=== PATIENT | male | born 1950 | race Caucasian/White ===

== ENCOUNTER 2018-03-29 12:36 | Emergency (ER) | payer MEDICARE ==
[2018-03-29 12:56] VITALS: RESP 16
[2018-03-29] MEDS ORDERED: KETOROLAC 30 MG/ML 1 ML VIAL IVP STA (14:35)
[2018-03-29] MEDS ORDERED: SODIUM CHLORIDE 0.9% 1,000 ML IV STA (14:35)
[2018-03-29] MEDS ORDERED: ONDANSETRON 4 MG/2 ML VIAL IVP STA (14:35)
[2018-03-29 14:38] LABS: Appearance,Urine Clear (Clear); Bilirubin,Urine Negative (Negative); Blood,Urine Negative (Negative); Color,Urine Light Yellow; Glucose,Urine (UA) Negative (Negative); Ketones,Urine Negative (Negative); Leukocyte Esterase,Urine Negative (Negative); Nitrite,Urine Negative (Negative); PH, Urine 6.5 (5.0-8.0); Protein,Urine Negative (Negative); Specific Gravity,Urine 1.006 (1.001-1.035); Urobilinogen,Urine <2.0 mg/dL (<2.0)
--- NOTE | 2018-03-29 14:52 | ED ---
Back Pain HPI - General Chief Complaint: Back Pain/Injury Stated Complaint: POSS KIDNEY STONE Time Seen by Provider: 03/29/18 14:06 Source: patient, RN notes reviewed, old records reviewed Limitations: no limitations - History of Present Illness Initial Comments: 68-year-old male presents for his rosacea plan of left-sided flank pain for the past 2 days. Concern for possibility of a kidney stone. Pain feels similar to his left kidney stones. He denies any fever or chills. His regular urinary frequency. He states that he's had no nausea or vomiting. Pain stays within the back. He reports he does have history of chronic back issues however the pain seems deeper and not muscle skeletal related. - Related Data Home Medications Medication Instructions Recorded Confirmed L.acidoph,Paracasei, B.lactis 1 cap PO DAILY 03/14/16 03/29/18 [Probiotic] Magnesium 200 mg PO DAILY 03/14/16 03/29/18 Multivitamins, Thera [Multivitamin] 1 tab PO DAILY 03/14/16 03/29/18 [place]-3 Fatty Acids/Fish Oil [Fish 1 cap PO DAILY 03/14/16 03/29/18 Oil 1,000 mg Softgel] Beta Glucan 1 tab PO DAILY 03/29/18 03/29/18 Cyanocobalamin (Vitamin B-12) 1,000 mcg PO DAILY 03/29/18 03/29/18 [Vitamin B-12] Previous Rx's Medication Instructions Recorded Cyclobenzaprine [Flexeril] 10 mg PO TID #12 tab 03/29/18 Ibuprofen 800 mg PO TID #20 tablet 03/29/18 Allergies Allergy/AdvReac Type Severity Reaction Status Date / Time No Known Allergies Allergy Verified 03/29/18 13:51 Review of Systems ROS Statement: Those systems with pertinent positive or pertinent negative responses have been documented in the HPI. ROS Other: All systems not noted in ROS Statement are negative. Past Medical History Past Medical History: No Reported History Additional Past Medical History / Comment(s): KIDNEY STONE, chronic low back pain. History of Any Multi-Drug Resistant Organisms: None Reported Past Surgical History: Cholecystectomy, Tonsillectomy Additional Past Surgical History / Comment(s): vasectomy Past Psychological History: No Psychological Hx Reported Smoking Status: Never smoker Past Alcohol Use History: None Reported Past Drug Use History: None Reported General Exam - General Exam Comments Initial Comments: This is a well appearing 68 year old male, no distress. Limitations: no limitations General appearance: alert, in no apparent distress Head exam: Present: atraumatic, normocephalic, normal inspection Eye exam: Present: normal appearance, PERRL, EOMI. Absent: scleral icterus, conjunctival injection, periorbital swelling ENT exam: Present: normal exam, mucous membranes moist Neck exam: Present: normal inspection. Absent: tenderness, meningismus, lymphadenopathy Respiratory exam: Present: normal lung sounds bilaterally. Absent: respiratory distress, wheezes, rales, rhonchi, stridor Cardiovascular Exam: Present: regular rate, normal rhythm, normal heart sounds. Absent: systolic murmur, diastolic murmur, rubs, gallop, clicks GI/Abdominal exam: Present: soft, normal bowel sounds, other (Left flank and CVA tenderness ). Absent: distended, tenderness, guarding, rebound, rigid Extremities exam: Present: normal inspection, full ROM, normal capillary refill. Absent: tenderness, pedal edema, joint swelling, calf tenderness Back exam: Present: normal inspection Neurological exam: Present: alert, oriented X3, CN II-XII intact Psychiatric exam: Present: normal affect, normal mood Course Vital Signs 03/29/18 03/29/18 12:52 16:10 Temperature 97.9 F 97.8 F Pulse Rate 68 58 L Respiratory 16 16 Rate Blood Pressure 116/70 147/86 O2 Sat by Pulse 97 98 Oximetry Medical Decision Making - Medical Decision Making 68-year-old male presents for his rosacea plan of left-sided flank pain for the past 2 days. Concern for possibility of a kidney stone. Pain feels similar to his left kidney stones. Labs today are unremarkable. UA shows no hematuria. Given patient pain and tenderness CT scan without contrast completed. CT is negative for renal stones. Discussed musculuar skeletal etiology. Patient will have DC with ibuprofen and flexeril. Discussed PCP follow up. - Lab Data Result diagrams: 03/29/18 14:55 03/29/18 14:55 Lab Results 03/29/18 03/29/18 03/29/18 Range/Units 14:05 14:55 14:55 WBC 3.7 L (3.8-10.6) k/uL RBC 4.73 (4.30-5.90) m/uL Hgb 14.9 (13.0-17.5) gm/dL Hct 45.8 (39.0-53.0) % MCV 96.9 (80.0-100.0) fL MCH 31.4 (25.0-35.0) pg MCHC 32.4 (31.0-37.0) g/dL RDW 13.6 (11.5-15.5) % Plt Count 294 (150-450) k/uL Neutrophils % 60 % Lymphocytes % 24 % Monocytes % 9 % Eosinophils % 4 % Basophils % 1 % Neutrophils # 2.2 (1.3-7.7) k/uL Lymphocytes # 0.9 L (1.0-4.8) k/uL Monocytes # 0.3 (0-1.0) k/uL Eosinophils # 0.1 (0-0.7) k/uL Basophils # 0.0 (0-0.2) k/uL PT (9.0-12.0) sec INR (<1.2) APTT (22.0-30.0) sec Sodium 139 (137-145) mmol/L Potassium 4.7 (3.5-5.1) mmol/L Chloride 104 (98-107) mmol/L Carbon Dioxide 27 (22-30) mmol/L Anion Gap 8 mmol/L BUN 14 (9-20) mg/dL Creatinine 0.88 (0.66-1.25) mg/dL Est GFR (CKD-EPI)AfAm >90 (>60 ml/min/1.73 sqM) Est GFR (CKD-EPI)NonAf 89 (>60 ml/min/1.73 sqM) Glucose 95 (74-99) mg/dL Calcium 10.3 H (8.4-10.2) mg/dL Total Bilirubin 0.4 (0.2-1.3) mg/dL AST 26 (17-59) U/L ALT 31 (21-72) U/L Alkaline Phosphatase 59 (38-126) U/L Total Protein 7.5 (6.3-8.2) g/dL Albumin 4.3 (3.5-5.0) g/dL Amylase 71 (30-110) U/L Lipase 70 (23-300) U/L Urine Color Light Yellow Urine Appearance Clear (Clear) Urine pH 6.5 (5.0-8.0) Ur Specific [place] 1.006 (1.001-1.035) Urine Protein Negative (Negative) Urine Glucose (UA) Negative (Negative) Urine Ketones Negative (Negative) Urine Blood Negative (Negative) Urine Nitrite Negative (Negative) Urine Bilirubin Negative (Negative) Urine Urobilinogen <2.0 (<2.0) mg/dL Ur Leukocyte Esterase Negative (Negative) 03/29/18 Range/Units 14:55 WBC (3.8-10.6) k/uL RBC (4.30-5.90) m/uL Hgb (13.0-17.5) gm/dL Hct (39.0-53.0) % MCV (80.0-100.0) fL MCH (25.0-35.0) pg MCHC (31.0-37.0) g/dL RDW (11.5-15.5) % Plt Count (150-450) k/uL Neutrophils % % Lymphocytes % % Monocytes % % Eosinophils % % Basophils % % Neutrophils # (1.3-7.7) k/uL Lymphocytes # (1.0-4.8) k/uL Monocytes # (0-1.0) k/uL Eosinophils # (0-0.7) k/uL Basophils # (0-0.2) k/uL PT 10.0 (9.0-12.0) sec INR 1.0 (<1.2) APTT 23.3 (22.0-30.0) sec Sodium (137-145) mmol/L Potassium (3.5-5.1) mmol/L Chloride (98-107) mmol/L Carbon Dioxide (22-30) mmol/L Anion Gap mmol/L BUN (9-20) mg/dL Creatinine (0.66-1.25) mg/dL Est GFR (CKD-EPI)AfAm (>60 ml/min/1.73 sqM) Est GFR (CKD-EPI)NonAf (>60 ml/min/1.73 sqM) Glucose (74-99) mg/dL Calcium (8.4-10.2) mg/dL Total Bilirubin (0.2-1.3) mg/dL AST (17-59) U/L ALT (21-72) U/L Alkaline Phosphatase (38-126) U/L Total Protein (6.3-8.2) g/dL Albumin (3.5-5.0) g/dL Amylase (30-110) U/L Lipase (23-300) U/L Urine Color Urine Appearance (Clear) Urine pH (5.0-8.0) Ur Specific [place] (1.001-1.035) Urine Protein (Negative) Urine Glucose (UA) (Negative) Urine Ketones (Negative) Urine Blood (Negative) Urine Nitrite (Negative) Urine Bilirubin (Negative) Urine Urobilinogen (<2.0) mg/dL Ur Leukocyte Esterase (Negative) - Radiology Data Radiology results: report reviewed CT is negative for acute disease. No renal stones. Small calcification over prostate noted. Post surgical changes noted. Disposition Clinical Impression: Flank pain Disposition: HOME SELF-CARE Condition: Good Instructions: Acute Low Back Pain (ED) Additional Instructions: Patient has follow-up with primary care physician. Return to emergency department if any alarming signs or symptoms occur. Prescriptions: Cyclobenzaprine [Flexeril] 10 mg PO TID #12 tab Ibuprofen 800 mg PO TID #20 tablet Is patient prescribed a controlled substance at d/c from ED?: No Referrals: Jose Godinez DO [Primary Care Provider] - 1-2 days Time of Disposition: 15:54
[2018-03-29 15:16] LABS: Basophils % (A) 1 %; Eosinophils # (A) 0.1 k/uL (0-0.7); Eosinophils % (A) 4 %; HCT 45.8 % (39.0-53.0); HGB 14.9 gm/dL (13.0-17.5); Lymphocytes # (A) 0.9 k/uL (1.0-4.8); Lymphocytes % (A) 24 %; MCH 31.4 pg (25.0-35.0); MCHC 32.4 g/dL (31.0-37.0); MCV 96.9 fL (80.0-100.0); Mean Platelet Volume 6.7; Monocytes # (A) 0.3 k/uL (0-1.0); Monocytes % (A) 9 %; Neutrophils # (A) 2.2 k/uL (1.3-7.7); Neutrophils % (A) 60 %; Platelet Count 294 k/uL (150-450); RBC 4.73 m/uL (4.30-5.90); RDW 13.6 % (11.5-15.5); WBC 3.7 k/uL (3.8-10.6)
[2018-03-29 15:22] LABS: ALT 31 U/L (21-72); AST 26 U/L (17-59); Albumin 4.3 g/dL (3.5-5.0); Alkaline Phosphatase 59 U/L (38-126); Amylase 71 U/L (30-110); Anion Gap 8 mmol/L; Blood Urea Nitrogen 14 mg/dL (9-20); Calcium 10.3 mg/dL (8.4-10.2); Carbon Dioxide 27 mmol/L (22-30); Chloride 104 mmol/L (98-107); Glucose 95 mg/dL (74-99); Lipase 70 U/L (23-300); Partial Thromboplastin Time 23.3 sec (22.0-30.0); Potassium 4.7 mmol/L (3.5-5.1); Sodium 139 mmol/L (137-145); Total Bilirubin 0.4 mg/dL (0.2-1.3); Total Protein 7.5 g/dL (6.3-8.2)
--- NOTE | 2018-03-29 15:34 | CT ---
EXAMINATION TYPE: CT abdomen pelvis wo con DATE OF EXAM: 03/29/2018 COMPARISON: Prior CT abdomen pelvis 03/14/2016 HISTORY: Abdominal pain, left flank pain CT DLP: 973 mGycm Automated exposure control for dose reduction was used. TECHNIQUE: Helical acquisition of images from the lung bases through the pelvis. FINDINGS: Lack of intravenous contrast may compromise sensitivity. Small hiatal hernia present. LUNG BASES: No significant abnormality is appreciated. AORTA: No significant abnormality is appreciated. LIVER/GB: Surgical clips are present in the right upper quadrant status post cholecystectomy. The christiana er shows subcentimeter cyst towards the dome as on prior exam.. PANCREAS: No significant abnormality is seen. SPLEEN: No significant abnormality is seen. ADRENALS: No significant abnormality is seen. KIDNEYS: No significant abnormality is seen. REPRODUCTIVE ORGANS: Prostate is enlarged. There is an inferior impression on the urinary bladder. T here is some calcification within the prostate.. URINARY BLADDER: No significant abnormality is seen. BOWEL: Extensive diverticular changes associated with the sigmoid colon. No evident appendicitis. Du odenal diverticulum present at the head of the pancreas as on prior. FREE AIR: No Free Air is visible. ASCITES: None visible. PELVIC ADENOPATHY: None visualized. RETROPERITONEAL ADENOPATHY: No Retroperitoneal Adenopathy visible. OSSEOUS STRUCTURES: No significant interval change is seen. Degenerative disc changes, facet arthrop athy noted, there is a spinal curvature as on prior. IMPRESSION: NONCONTRAST EXAM. NO SIGNIFICANT INTERVAL CHANGE, ADDITIONAL FINDINGS ABOVE. DIVERTICULOSIS.
[2018-03-29 16:11] VITALS: BP 147/86; PULSE 58; TEMP 97.8
== END 2018-03-29 16:10 | disposition home or self-care (01) ==
LOC: EC 12:36
DX: R10.9 Unspecified abdominal pain (principal); M54.9 Dorsalgia, unspecified; Z87.442 Personal history of urinary calculi; Z79.899 Other long term (current) drug therapy; Z90.49 Acquired absence of other specified parts of digestive tract
CPT/HCPCS: 36415; 80053; 82150; 83690; 85025; 85610; 85730; 81003; 74176; 99284; 96374; 96375; 96361; J2405; J1885

== ENCOUNTER → 2018-09-25 | Outpatient (CLI) | payer MEDICARE ==
[2018-09-25 11:58] LABS: Appearance,Urine Clear (Clear); Bilirubin,Urine Negative (Negative); Blood,Urine Negative (Negative); Color,Urine Yellow; Glucose,Urine (UA) Negative (Negative); Ketones,Urine Negative (Negative); Leukocyte Esterase,Urine Negative (Negative); Nitrite,Urine Negative (Negative); Protein,Urine Negative (Negative); Specific Gravity,Urine 1.019 (1.001-1.035); Urobilinogen,Urine <2.0 mg/dL (<2.0)
[2018-09-25 12:46] LABS: HGB 15.5 gm/dL (13.0-17.5); MCH 33.2 pg (25.0-35.0); MCHC 32.9 g/dL (31.0-37.0); Macrocytosis Slight; Mean Platelet Volume 6.2; Platelet Count 302 k/uL (150-450); RBC 4.66 m/uL (4.30-5.90); RDW 14.1 % (11.5-15.5); WBC 3.5 k/uL (3.8-10.6)
[2018-09-25 18:52] LABS: Albumin 4.5 g/dL (3.80-4.90); Albumin/Globulin Ratio 1.73 (1.60-3.17); Anion Gap 9.4 mmol/L (4.00-12.00); Carbon Dioxide 26.6 mmol/L (21.6-31.8); Globulin 2.6 g/dL (1.6-3.3); Potassium 4.6 mmol/L (3.5-5.5); Total Bilirubin 0.5 mg/dL (0.2-1.2); Total Protein 7.1 g/dL (6.2-8.2)
[2018-09-25 18:55] LABS: Vitamin D 25 Hydroxy 10.8 ng/mL (30.0-100.0)
[2018-09-25 19:27] LABS: T4, Free (Free Thyroxine) 1.1 ng/dL (0.80-1.80)
[2018-09-25 20:15] LABS: Hepatitis A Antibody IgM Non-Reactive (Non-Reactive); Hepatitis B Core IgM Non-Reactive (Non-Reactive)
== END | disposition home or self-care (01) ==
LOC: LABWHC1 10:52
PROVIDERS: ATTEND Family Medicine
DX: Z00.00 Encounter for general adult medical examination without abnormal findings (principal); E78.5 Hyperlipidemia, unspecified; E55.9 Vitamin D deficiency, unspecified; R94.5 Abnormal results of liver function studies; Z12.5 Encounter for screening for malignant neoplasm of prostate
CPT/HCPCS: 36415; 80053; 80061; 80074; 81003; 82306; 84153; 84439; 84443; 85027

== ENCOUNTER → 2018-10-10 | Outpatient (CLI) | payer MEDICARE ==
--- NOTE | 2018-10-10 16:23 | XR ---
Left foot HISTORY: Superficial foreign body, pain and history of glass removal third metatarsal head 3 views of the left foot No comparisons Bone mineralization, joint spaces and alignment are maintained. No radiopaque foreign body noted at t he third digit. Metallic density seen at the dorsal aspect of the middle phalanx of the second digit of the left foot is indeterminate. There are likely skin calcifications or foreign bodies noted at th e level of the lateral malleolus. There is a plantar calcaneus spur. IMPRESSION: Soft tissue metallic densities may represent calcifications. No radiopaque foreign body n oted at the third digit however.
== END | disposition home or self-care (01) ==
LOC: RADXRMAIN 14:51
PROVIDERS: ATTEND Podiatrist Foot Surgery
DX: M79.672 Pain in left foot (principal); S90.852S Superficial foreign body, left foot, sequela

== ENCOUNTER 2024-01-03 09:02 | Emergency (ER) | payer MEDICARE ==
--- NOTE | 2024-01-03 09:36 | ED ---
Extremity Problem HPI - General Chief complaint: Extremity Problem,Nontraumatic Stated complaint: left ft swollen Time Seen by Provider: 01/03/24 09:14 Source: patient, RN notes reviewed Mode of arrival: ambulatory Limitations: no limitations - History of Present Illness Initial comments: 73-year-old male presents emergency department with chief complaint of left ankle, foot swelling discomfort. He states started on the lateral portion of his ankle states there is redness, swelling and a sore. He called his PCP advised to come to emergency department. Patient denies any fevers no trauma denies being diabetic denies any calf pain, calf swelling, thigh pain or leg swelling otherwise. - Related Data Home Medications Medication Instructions Recorded Confirmed L.acidoph,Paracasei, B.lactis 1 cap PO DAILY 03/14/16 01/03/24 [Probiotic] Magnesium 200 mg PO DAILY 03/14/16 01/03/24 Beta Glucan 1 tab PO DAILY 03/29/18 01/03/24 Cyanocobalamin (Vitamin B-12) 1,000 mcg PO DAILY 03/29/18 01/03/24 [Vitamin B-12] Ascorbic Acid [Vitamin C] 1,000 mg PO DAILY 01/03/24 01/03/24 Ergocalciferol (Vitamin D2) 1,250 mcg PO Q7D 01/03/24 01/03/24 [Drisdol (50,000 Iu)] Zinc Gluconate [Zinc] 50 mg PO DAILY 01/03/24 01/03/24 Previous Rx's Medication Instructions Recorded Cephalexin [Keflex] 500 mg PO Q6HR #40 cap 01/03/24 Allergies Allergy/AdvReac Type Severity Reaction Status Date / Time No Known Allergies Allergy Verified 01/03/24 11:00 Review of Systems ROS Statement: Those systems with pertinent positive or pertinent negative responses have been documented in the HPI. ROS Other: All systems not noted in ROS Statement are negative. Past Medical History Past Medical History: No Reported History Additional Past Medical History / Comment(s): KIDNEY STONE, chronic low back pain. History of Any Multi-Drug Resistant Organisms: None Reported Past Surgical History: Cholecystectomy, Tonsillectomy Additional Past Surgical History / Comment(s): vasectomy Past Psychological History: No Psychological Hx Reported Smoking Status: Never smoker Past Alcohol Use History: None Reported Past Drug Use History: None Reported General Exam Limitations: no limitations General appearance: alert, in no apparent distress Head exam: Present: atraumatic, normocephalic, normal inspection Respiratory exam: Present: normal lung sounds bilaterally. Absent: respiratory distress, wheezes, rales, rhonchi, stridor Cardiovascular Exam: Present: regular rate, normal rhythm, normal heart sounds. Absent: systolic murmur, diastolic murmur, rubs, gallop, clicks Extremities exam: Present: other (Left ankle lateral malleolus there is erythema, there is callus sore noted there is mild swelling neurovascular intact there is no calf tenderness swelling or redness) Neurological exam: Present: alert Course Vital Signs 01/03/24 01/03/24 09:09 12:17 Temperature 98.8 F Pulse Rate 72 59 L Respiratory 18 16 Rate Blood Pressure 128/78 143/88 O2 Sat by Pulse 98 100 Oximetry Medical Decision Making - Medical Decision Making Was pt. sent in by a medical professional or institution (, PA, HEALTHCARE SALES REPRESENTATIVE, urgent care, hospital, or jail...) When possible be specific @ -No Did you speak to anyone other than the patient for history (EMS, parent, family, police, friend...)? What history was obtained from this source @ -No Did you review nursing and triage notes (agree or disagree)? Why? @ -I reviewed and agree with nursing and triage notes Were old charts reviewed (outside hosp., previous admission, EMS record, old EKG, old radiological studies, urgent care reports/EKG's, jail records)? Report findings @ -No old charts were reviewed Differential Diagnosis (chest pain, altered mental status, abdominal pain women, abdominal pain men, vaginal bleeding, weakness, fever, dyspnea, syncope, headache, dizziness, GI bleed, back pain, seizure, CVA, palpatations, mental health, musculoskeletal)? @ -Cellulitis, osteomyelitis EKG interpreted by me (3pts min.). @ -None X-rays interpreted by me (1pt min.). @ -X-ray shows no acute process foot, ankle CT interpreted by me (1pt min.). @ -None done U/S interpreted by me (1pt. min.). @ -None done What testing was considered but not performed or refused? (CT, X-rays, U/S, labs)? Why? @ -None What meds were considered but not given or refused? Why? @ -None Did you discuss the management of the patient with other professionals (professionals i.e. , PA, HEALTHCARE SALES REPRESENTATIVE, lab, RT, psych nurse, social work specialist, industrial roofer helper, teacher, sustainability officer, case resolution specialist)? Give summary @ -No Was smoking cessation discussed for >3mins.? @ -No Was critical care preformed (if so, how long)? @ -No Were there social determinants of health that impacted care today? How? (Homelessness, low income, unemployed, alcoholism, drug addiction, transportation, low edu. Level, literacy, decrease access to med. care, group home, rehab)? @ -No Was there de-escalation of care discussed even if they declined (Discuss DNR or withdrawal of care, Hospice)? DNR status @ -No What co-morbidities impacted this encounter? (DM, HTN, Smoking, COPD, CAD, Cancer, CVA, ARF, Chemo, Hep., AIDS, mental health diagnosis, sleep apnea, morbid obesity)? @ -None Was patient admitted / discharged? Hospital course, mention meds given and route, prescriptions, significant lab abnormalities, going to OR and other pertinent info. @ -Discharge patient has evidence of cellulitis was discharged on oral antibiotics return parens were discussed close follow-up discussed Undiagnosed new problem with uncertain prognosis? @ -No Drug Therapy requiring intensive monitoring for toxicity (Heparin, Nitro, Insulin, Cardizem)? @ -No Were any procedures done? @ -No Diagnosis/symptom? @ -Cellulitis Acute, or Chronic, or Acute on Chronic? @ -Acute Uncomplicated (without systemic symptoms) or Complicated (systemic symptoms)? @ -Uncomplicated Side effects of treatment? @ -No Exacerbation, Progression, or Severe Exacerbation? @ -No Poses a threat to life or bodily function? How? (Chest pain, [place], [place], pneumonia, PE, COPD, DKA, ARF, appy, cholecystitis, CVA, Diverticulitis, Homicidal, Suicidal, threat to staff... and all critical care pts) @ -No - Lab Data Result diagrams: 01/03/24 09:44 01/03/24 09:44 Lab Results 01/03/24 01/03/24 Range/Units 09:44 09:44 WBC 3.8 (3.8-10.6) k/uL RBC 4.04 L (4.30-5.90) m/uL Hgb 13.2 (13.0-17.5) gm/dL Hct 40.4 (39.0-53.0) % MCV 99.9 (80.0-100.0) fL MCH 32.6 (25.0-35.0) pg MCHC 32.6 (31.0-37.0) g/dL RDW 13.6 (11.5-15.5) % Plt Count 250 (150-450) k/uL MPV 7.5 Neutrophils % 56 % Lymphocytes % 24 % Monocytes % 8 % Eosinophils % 7 % Basophils % 1 % Neutrophils # 2.1 (1.3-7.7) k/uL Lymphocytes # 0.9 L (1.0-4.8) k/uL Monocytes # 0.3 (0-1.0) k/uL Eosinophils # 0.3 (0-0.7) k/uL Basophils # 0.0 (0-0.2) k/uL Sodium 141 (137-145) mmol/L Potassium 4.1 (3.5-5.1) mmol/L Chloride 110 H (98-107) mmol/L Carbon Dioxide 27 (22-30) mmol/L Anion Gap 4 mmol/L BUN 14 (9-20) mg/dL Creatinine 0.88 (0.66-1.25) mg/dL Est GFR (CKD-EPI)AfAm >90 (>60 ml/min/1.73 sqM) Est GFR (CKD-EPI)NonAf 85 (>60 ml/min/1.73 sqM) Glucose 90 (74-99) mg/dL Uric Acid 4.8 (3.5-8.5) mg/dL Calcium 9.3 (8.4-10.2) mg/dL Total Bilirubin 0.6 (0.2-1.3) mg/dL AST 27 (17-59) U/L ALT 17 (4-49) U/L Alkaline Phosphatase 64 (38-126) U/L C-Reactive Protein 1.9 H (<1.0) mg/dL Total Protein 6.4 (6.3-8.2) g/dL Albumin 3.7 (3.5-5.0) g/dL Disposition Clinical Impression: Cellulitis of left ankle Disposition: HOME SELF-CARE Condition: Stable Instructions (If sedation given, give patient instructions): Cellulitis (ED) Additional Instructions: Please return to the Emergency Department if symptoms worsen or any other concerns. Prescriptions: Cephalexin [Keflex] 500 mg PO Q6HR #40 cap Is patient prescribed a controlled substance at d/c from ED?: No Referrals: Jose Godinez DO [Primary Care Provider] - 1-2 days Time of Disposition: 11:59
[2024-01-03 09:51] VITALS: TEMP 98.8
--- NOTE | 2024-01-03 09:55 | XR ---
EXAMINATION TYPE: XR ankle complete LT DATE OF EXAM: 01/03/2024 COMPARISON: X-ray foot 10/10/2018 HISTORY: Pain FINDINGS: Three views of the ankle demonstrate the ankle mortise to be intact and symmetric. The joint spaces are preserved. The osseous structures are intact. Soft tissue edema laterally with areas of punctat e calcification. Recommend further evaluation with MRI to assess whether this is inflammatory, infect ious or neoplastic. Small calcaneal spur. IMPRESSION: 1. No definite acute fracture or dislocation. There is a area of localized soft tissue prominence or swelling along the lateral margin of the ankle with internal calcifications. Finding could be postinflammatory or postinfectious. Abnormal densitie s were seen on the prior exam. Could represent chronic foreign body correlate clinically. Consider fo llow-up ultrasound or CT scan..
[2024-01-03 10:00] LABS: Basophils % (A) 1 %; Eosinophils # (A) 0.3 k/uL (0-0.7); Eosinophils % (A) 7 %; HCT 40.4 % (39.0-53.0); HGB 13.2 gm/dL (13.0-17.5); Lymphocytes # (A) 0.9 k/uL (1.0-4.8); Lymphocytes % (A) 24 %; MCH 32.6 pg (25.0-35.0); MCHC 32.6 g/dL (31.0-37.0); MCV 99.9 fL (80.0-100.0); Mean Platelet Volume 7.5; Monocytes # (A) 0.3 k/uL (0-1.0); Monocytes % (A) 8 %; Neutrophils # (A) 2.1 k/uL (1.3-7.7); Neutrophils % (A) 56 %; Platelet Count 250 k/uL (150-450); RBC 4.04 m/uL (4.30-5.90); RDW 13.6 % (11.5-15.5); WBC 3.8 k/uL (3.8-10.6)
[2024-01-03 10:13] LABS: ALT 17 U/L (4-49); AST 27 U/L (17-59); African American GFR (CKD) >90 (>60 ml/min/1.73 sqM); Albumin 3.7 g/dL (3.5-5.0); Alkaline Phosphatase 64 U/L (38-126); Anion Gap 4 mmol/L; Blood Urea Nitrogen 14 mg/dL (9-20); Calcium 9.3 mg/dL (8.4-10.2); Carbon Dioxide 27 mmol/L (22-30); Chloride 110 mmol/L (98-107); Glucose 90 mg/dL (74-99); Non-African American GFR(CKD) 85 (>60 ml/min/1.73 sqM); Potassium 4.1 mmol/L (3.5-5.1); Sodium 141 mmol/L (137-145); Total Bilirubin 0.6 mg/dL (0.2-1.3); Total Protein 6.4 g/dL (6.3-8.2); Uric Acid 4.8 mg/dL (3.5-8.5)
[2024-01-03 12:38] VITALS: BP 143/88; PULSE 59; RESP 16
[2024-01-03 14:00] LABS: C Reactive Protein 1.9 mg/dL (<1.0)
== END 2024-01-03 12:18 | disposition home or self-care (01) ==
LOC: EC 09:02
DX: L03.116 Cellulitis of left lower limb (principal)
CPT/HCPCS: 36415; 80053; 84550; 85025; 86140; 99283

== ENCOUNTER 2024-01-11 03:24 | Observation (INO) | payer MEDICARE ==
[2024-01-11] MEDS: SODIUM CHLORIDE 0.9% 1,000 ML IV STA (03:48)
[2024-01-11 03:54] LABS: Basophils % (A) 0 %; Eosinophils # (A) 0.2 k/uL (0-0.7); Eosinophils % (A) 2 %; HCT 41.8 % (39.0-53.0); HGB 13.5 gm/dL (13.0-17.5); Lymphocytes % (A) 12 %; MCH 31.9 pg (25.0-35.0); MCHC 32.2 g/dL (31.0-37.0); MCV 99.1 fL (80.0-100.0); Mean Platelet Volume 7.2; Monocytes # (A) 0.7 k/uL (0-1.0); Monocytes % (A) 9 %; Neutrophils # (A) 6.1 k/uL (1.3-7.7); Neutrophils % (A) 74 %; Platelet Count 343 k/uL (150-450); RBC 4.22 m/uL (4.30-5.90); RDW 13.7 % (11.5-15.5); WBC 8.3 k/uL (3.8-10.6)
--- NOTE | 2024-01-11 04:04 | XR ---
EXAMINATION TYPE: XR chest 2V DATE OF EXAM: 01/11/2024 COMPARISON: NONE HISTORY: Syncope TECHNIQUE: Frontal and lateral views of the chest are obtained. FINDINGS: There is no focal air space opacity, pleural effusion, or pneumothorax seen. The cardiac silhouette size is within normal limits. The osseous structures are intact. IMPRESSION: No acute cardiopulmonary process.
--- NOTE | 2024-01-11 04:06 | ED ---
General Adult HPI - General Stated complaint: Syncope Time Seen by Provider: 01/11/24 03:27 - History of Present Illness Initial comments: A pleasant 73-year-old gentleman who was seen in our ER last week for what was believed to be cellulitis of the left ankle, patient took a course of Keflex. Despite taking his medication patient has had persistent pain redness and swelling. Patient states that tonight he was not able to sleep due to the pain he got up from bed to get some ibuprofen and use the restroom states that he took a couple steps got very lightheaded and then had a syncopal episode in which she lost continence of the bladder. Patient states that him falling to the ground alerted his who immediately started asking him what was going on patient was able to answer clearly did not seem to have any postictal period. Patient does not believe he hit his head he not have any head pain or any pain aside from the ankle that was present syncopal episode. No significant medical history he takes a vitamin D supplement and follows with Dr. Cagle orthopedics for pain in his right knee for which she has received injections. - Related Data Home Medications Medication Instructions Recorded Confirmed L.acidoph,Paracasei, B.lactis 1 cap PO DAILY 03/14/16 01/03/24 [Probiotic] Magnesium 200 mg PO DAILY 03/14/16 01/03/24 Beta Glucan 1 tab PO DAILY 03/29/18 01/03/24 Cyanocobalamin (Vitamin B-12) 1,000 mcg PO DAILY 03/29/18 01/03/24 [Vitamin B-12] Ascorbic Acid [Vitamin C] 1,000 mg PO DAILY 01/03/24 01/03/24 Ergocalciferol (Vitamin D2) 1,250 mcg PO Q7D 01/03/24 01/03/24 [Drisdol (50,000 Iu)] Zinc Gluconate [Zinc] 50 mg PO DAILY 01/03/24 01/03/24 Previous Rx's Medication Instructions Recorded Cephalexin [Keflex] 500 mg PO Q6HR #40 cap 01/03/24 Allergies Allergy/AdvReac Type Severity Reaction Status Date / Time No Known Allergies Allergy Verified 01/11/24 03:28 Review of Systems ROS Statement: Those systems with pertinent positive or pertinent negative responses have been documented in the HPI. ROS Other: All systems not noted in ROS Statement are negative. Past Medical History Past Medical History: No Reported History Additional Past Medical History / Comment(s): KIDNEY STONE, chronic low back pain. History of Any Multi-Drug Resistant Organisms: None Reported Past Surgical History: Cholecystectomy, Tonsillectomy Additional Past Surgical History / Comment(s): vasectomy Past Psychological History: No Psychological Hx Reported Smoking Status: Never smoker Past Alcohol Use History: None Reported Past Drug Use History: None Reported General Exam - General Exam Comments Initial Comments: Physical Exam GENERAL: Patient is well-developed and well-nourished. Patient is nontoxic and well- hydrated and is in no distress. HENT: Normocephalic, Atraumatic. EYES: PERRL, EOMI PULMONARY: Unlabored respirations. No audible rales rhonchi or wheezing was noted. CARDIOVASCULAR: There is a regular rate and rhythm without any murmurs gallops or rubs. ABDOMEN: Soft and nontender with normal bowel sounds. SKIN: Skin is clear with no lesions or rashes and otherwise unremarkable. : Deferred NEUROLOGIC: Patient is alert and oriented x3. Moving all extremities spontaneously MUSCULOSKELETAL: Normal extremities with adequate strength and full range of motion. No lower extremity swelling or edema. No calf tenderness. PSYCHIATRIC: Normal psychiatric evaluation. Course Vital Signs 01/11/24 03:28 Temperature 98.3 F Pulse Rate 84 Respiratory 19 Rate Blood Pressure 111/75 O2 Sat by Pulse 99 Oximetry EKG Findings - EKG Comments: EKG Findings:: EKG interpreted by me EKG obtained due to syncope, EKG obtained at 3:42 AM rate is 75 rhythm is sinus lateral Q waves are noted, VT 162 QRS 90 QTc 416 there are no acute ST elevations or depressions no evidence of ischemia infarction or pathologic arrhythmia. Medical Decision Making - Medical Decision Making Was pt. sent in by a medical professional or institution (, PA, JACKSCREW WORKER, urgent care, hospital, or fci...) When possible be specific @ -No Did you speak to anyone other than the patient for history (EMS, parent, family, police, friend...)? What history was obtained from this source @ -EMS Did you review nursing and triage notes (agree or disagree)? Why? @ -I reviewed and agree with nursing and triage notes Were old charts reviewed (outside hosp., previous admission, EMS record, old EKG, old radiological studies, urgent care reports/EKG's, fci records)? Report findings @ -Previous ER visit was reviewed Differential Diagnosis (chest pain, altered mental status, abdominal pain women, abdominal pain men, vaginal bleeding, weakness, fever, dyspnea, syncope, headache, dizziness, GI bleed, back pain, seizure, CVA, palpatations, mental health)? @ -Differential Syncope: Valvular disease, hypertrophic cardiomyopathy, pulmonary embolism, tamponade, tachycardia, bradycardia, PA, hypovolemia, hemorrhage, dissection, anemia, intracranial hemorrhage, seizure, hypoglycemia, carbon monoxide poisoning, this is not meant to be an all-inclusive list. EKG interpreted by me (3pts min.). @ -As above X-rays interpreted by me (1pt min.). @ -X-ray with no acute findings, no widened mediastinum no pneumothorax no focal consolidations no cardiomegaly CT interpreted by me (1pt min.). @ -None done U/S interpreted by me (1pt. min.). @ -None done What testing was considered but not performed or refused? (CT, X-rays, U/S, labs)? Why? @ -None What meds were considered but not given or refused? Why? @ -None Did you discuss the management of the patient with other professionals (professionals i.e. , PA, JACKSCREW WORKER, lab, RT, psych nurse, social services technician, freelance programmer/app developer, teacher, customs and border protection officer, adult protective caseworker)? Give summary @ -No Was smoking cessation discussed for >3mins.? @ -No Was critical care preformed (if so, how long)? @ -No Were there social determinants of health that impacted care today? How? (Homelessness, low income, unemployed, alcoholism, drug addiction, transportation, low edu. Level, literacy, decrease access to med. care, [facility], rehab)? @ -No Was there de-escalation of care discussed even if they declined (Discuss DNR or withdrawal of care, Hospice)? DNR status @ -No What co-morbidities impacted this encounter? (DM, HTN, Smoking, COPD, CAD, Cancer, CVA, ARF, Chemo, Hep., AIDS, mental health diagnosis, sleep apnea, mo rbid obesity)? @ -None Was patient admitted / discharged? Hospital course, mention meds given and r oute, prescriptions, significant lab abnormalities, going to OR and other pertinent info. @ -Admitted Patient was seen and evaluated, history was obtained from patient. Patient seemed to have an orthostatic syncopal episode, vital signs have been stable and his condition has improved with IV fluids. Labs did result with an elevated D- dimer however I feel this is likely related to his infection in his leg. Patient did have a negative DVT study last week. He does not have any swelling or signs of DVT and I do not feel he needs a PE study at this time. The exam of the ankle is concerning for a bursitis over the lateral malleolus which is somewhat rare but does appear to be inflamed and infected, we will consult orthopedics for evaluation of this and possible I&D versus surgical removal. Patient will be admitted for syncope with cardiology and orthopedics on consult. Undiagnosed new problem with uncertain prognosis? @ -No Drug Therapy requiring intensive monitoring for toxicity (Heparin, Nitro, Insulin, Cardizem)? @ -No Were any procedures done? @ -No Diagnosis/symptom? @ -syncope Acute, or Chronic, or Acute on Chronic? @ -Acute Uncomplicated (without systemic symptoms) or Complicated (systemic symptoms)? @ -Default Side effects of treatment? @ -No Exacerbation, Progression, or Severe Exacerbation? @ -No Poses a threat to life or bodily function? How? (Chest pain, USA, PA, pneumonia, PE, COPD, DKA, ARF, appy, cholecystitis, CVA, Diverticulitis, Homicidal, Suicidal, threat to staff... and all critical care pts) @ -Unlikely Diagnosis/symptom? @ -Septic bursitis Acute, or Chronic, or Acute on Chronic? @ -Acute Uncomplicated (without systemic symptoms) or Complicated (systemic symptoms)? @ -Default Side effects of treatment? @ -None Exacerbation, Progression, or Severe Exacerbation] @ -No Poses a threat to life or bodily function? @ -No - Lab Data Result diagrams: 01/11/24 03:42 01/11/24 03:42 Lab Results 01/11/24 01/11/24 01/11/24 Range/Units 03:42 03:42 03:42 WBC 8.3 (3.8-10.6) k/uL RBC 4.22 L (4.30-5.90) m/uL Hgb 13.5 (13.0-17.5) gm/dL Hct 41.8 (39.0-53.0) % MCV 99.1 (80.0-100.0) fL MCH 31.9 (25.0-35.0) pg MCHC 32.2 (31.0-37.0) g/dL RDW 13.7 (11.5-15.5) % Plt Count 343 (150-450) k/uL MPV 7.2 Neutrophils % 74 % Lymphocytes % 12 % Monocytes % 9 % Eosinophils % 2 % Basophils % 0 % Neutrophils # 6.1 (1.3-7.7) k/uL Lymphocytes # 1.0 (1.0-4.8) k/uL Monocytes # 0.7 (0-1.0) k/uL Eosinophils # 0.2 (0-0.7) k/uL Basophils # 0.0 (0-0.2) k/uL PT 10.2 (10.0-12.5) sec INR 0.9 (<1.2) APTT 22.4 (22.0-30.0) sec D-Dimer 1.30 H (<0.60) mg/L FEU Sodium 136 L (137-145) mmol/L Potassium 4.1 (3.5-5.1) mmol/L Chloride 106 (98-107) mmol/L Carbon Dioxide 22 (22-30) mmol/L Anion Gap 8 mmol/L BUN 16 (9-20) mg/dL Creatinine 1.05 (0.66-1.25) mg/dL Est GFR (CKD-EPI)AfAm 82 (>60 ml/min/1.73 sqM) Est GFR (CKD-EPI)NonAf 71 (>60 ml/min/1.73 sqM) Glucose 121 H (74-99) mg/dL Plasma Lactic Acid Tyron (0.7-2.0) mmol/L Calcium 9.9 (8.4-10.2) mg/dL Total Bilirubin 0.6 (0.2-1.3) mg/dL AST 27 (17-59) U/L ALT 18 (4-49) U/L Alkaline Phosphatase 84 (38-126) U/L Troponin I (0.000-0.034) ng/mL Total Protein 7.0 (6.3-8.2) g/dL Albumin 4.3 (3.5-5.0) g/dL 01/11/24 01/11/24 Range/Units 03:42 03:44 WBC (3.8-10.6) k/uL RBC (4.30-5.90) m/uL Hgb (13.0-17.5) gm/dL Hct (39.0-53.0) % MCV (80.0-100.0) fL MCH (25.0-35.0) pg MCHC (31.0-37.0) g/dL RDW (11.5-15.5) % Plt Count (150-450) k/uL MPV Neutrophils % % Lymphocytes % % Monocytes % % Eosinophils % % Basophils % % Neutrophils # (1.3-7.7) k/uL Lymphocytes # (1.0-4.8) k/uL Monocytes # (0-1.0) k/uL Eosinophils # (0-0.7) k/uL Basophils # (0-0.2) k/uL PT (10.0-12.5) sec INR (<1.2) APTT (22.0-30.0) sec D-Dimer (<0.60) mg/L FEU Sodium (137-145) mmol/L Potassium (3.5-5.1) mmol/L Chloride (98-107) mmol/L Carbon Dioxide (22-30) mmol/L Anion Gap mmol/L BUN (9-20) mg/dL Creatinine (0.66-1.25) mg/dL Est GFR (CKD-EPI)AfAm (>60 ml/min/1.73 sqM) Est GFR (CKD-EPI)NonAf (>60 ml/min/1.73 sqM) Glucose (74-99) mg/dL Plasma Lactic Acid Tyron 1.4 (0.7-2.0) mmol/L Calcium (8.4-10.2) mg/dL Total Bilirubin (0.2-1.3) mg/dL AST (17-59) U/L ALT (4-49) U/L Alkaline Phosphatase (38-126) U/L Troponin I <0.012 (0.000-0.034) ng/mL Total Protein (6.3-8.2) g/dL Albumin (3.5-5.0) g/dL Disposition Clinical Impression: Syncope due to orthostatic hypotension, Septic bursitis Disposition: ADMITTED IP TO THIS HOSP Condition: Stable Is patient prescribed a controlled substance at d/c from ED?: No
[2024-01-11 04:08] LABS: INR 0.9 (<1.2); Partial Thromboplastin Time 22.4 sec (22.0-30.0); Prothrombin Time 10.2 sec (10.0-12.5)
[2024-01-11 04:32] LABS: ALT 18 U/L (4-49); AST 27 U/L (17-59); African American GFR (CKD) 82 (>60 ml/min/1.73 sqM); Albumin 4.3 g/dL (3.5-5.0); Alkaline Phosphatase 84 U/L (38-126); Anion Gap 8 mmol/L; Blood Urea Nitrogen 16 mg/dL (9-20); Calcium 9.9 mg/dL (8.4-10.2); Carbon Dioxide 22 mmol/L (22-30); Chloride 106 mmol/L (98-107); Glucose 121 mg/dL (74-99); Non-African American GFR(CKD) 71 (>60 ml/min/1.73 sqM); Potassium 4.1 mmol/L (3.5-5.1); Sodium 136 mmol/L (137-145); Total Bilirubin 0.6 mg/dL (0.2-1.3)
[2024-01-11] MEDS ORDERED: NALOXONE 0.4 MG/ML 1 ML VIAL IV PRN (04:41)
--- NOTE | 2024-01-11 08:38 | P.CRDCN ---
History of Present Illness History of present illness: HISTORY OF PRESENT ILLNESS: This is a 73-year-old male with no significant past medical history. Patient does not follow with a freelance interpreter/translator. We have been asked to see the patient in consultation for syncope. Patient examined at the bedside. Patient states he has been having redness and swelling of his left foot and ankle for about a week. He states that he sought medical attention on Monday and was started on Keflex. Patient states he has also been taking ibuprofen at home. He states that he got up to go to the bathroom and on his way to the bathroom had a syncopal episode. The patient denies having any chest pain or pressure. Denies having any shortness of breath. He denies any dizziness or lightheadedness. Denies any family history of CAD. Patient does report that he got his right knee injected by Dr. Cagle about 3 to 4 weeks ago. He continues to have redness and swelling of his left lateral ankle however he states this has improved over the past few days. DIAGNOSTICS: - EKG reveals sinus mechanism with no signs of acute ischemia. - Chest xray negative for acute process. - Laboratory data: WBC 8.3. Hemoglobin 13.5. Platelet count 343. D-dimer 1.30. Sodium 136. Potassium 4.1. BUN 16. Creatinine 1.05. Troponin negative x 1 - Current home cardiac medications include none. REVIEW OF SYSTEMS: At the time of my exam: CONSTITUTIONAL: Denies fever or chills. HEENT: Denies blurred vision, vision changes, or eye pain. Denies hemoptysis CARDIOVASCULAR: Denies chest pain. Denies orthopnea. Denies PND. Denies palpitations RESPIRATORY: Denies shortness of breath. GASTROINTESTINAL: Denies abdominal pain. Denies nausea or vomiting. HEMATOLOGIC: Denies bleeding disorders. GENITOURINARY: Denies any blood in urine. SKIN: Denies pruitis. Denies rash. PHYSICAL EXAM: VITAL SIGNS: Reviewed. GENERAL: Well-developed in no acute distress. HEENT: Head is normocephalic. Pupils are equal, round. Sclerae anicteric. Mucous membranes of the mouth are moist. Neck supple. No JVD or thyromegaly LUNGS: Respirations even and unlabored. Lungs essentially clear to auscultation bilaterally. HEART: Regular rate and rhythm. S1 and S2 heard. ABDOMEN: Soft. Nondistended. Nontender. EXTREMITIES: Normal range of motion. No clubbing or cyanosis. Peripheral pulses intact. left lateral ankle with erythema and edema noted. NEUROLOGIC: Awake and alert. Oriented x 3. ASSESSMENT: Syncope, suspect vasovagal in nature Elevated D-dimer, rule out pulmonary embolism, although unlikely has patient does not have s/s of PE Left lateral ankle cellulitis/bursitis PLAN: Obtain 2D echo to assess cardiac structure and function Obtain CT angio of the chest to rule out pulmonary embolism Await evaluation by orthopedics Will plan for outpatient stress testing Further recommendations pending patient course Nurse practitioner note has been reviewed by physician. Signing provider agrees with the documented findings, assessment, and plan of care documented by RECYCLING OPERATIONS MANAGER as a scribe. Past Medical History Past Medical History: No Reported History Additional Past Medical History / Comment(s): KIDNEY STONE, chronic low back pain. History of Any Multi-Drug Resistant Organisms: None Reported Past Surgical History: Cholecystectomy, Tonsillectomy Additional Past Surgical History / Comment(s): vasectomy Past Psychological History: No Psychological Hx Reported Smoking Status: Never smoker Past Alcohol Use History: None Reported Past Drug Use History: None Reported Medications and Allergies Home Medications Medication Instructions Recorded Confirmed Type L.acidoph,Paracasei, B.lactis 1 cap PO DAILY 03/14/16 01/03/24 History [Probiotic] Magnesium 200 mg PO DAILY 03/14/16 01/03/24 History Beta Glucan 1 tab PO DAILY 03/29/18 01/03/24 History Cyanocobalamin (Vitamin B-12) 1,000 mcg PO DAILY 03/29/18 01/03/24 History [Vitamin B-12] Ascorbic Acid [Vitamin C] 1,000 mg PO DAILY 01/03/24 01/03/24 History Cephalexin [Keflex] 500 mg PO Q6HR #40 cap 01/03/24 Rx Ergocalciferol (Vitamin D2) 1,250 mcg PO Q7D 01/03/24 01/03/24 History [Drisdol (50,000 Iu)] Zinc Gluconate [Zinc] 50 mg PO DAILY 01/03/24 01/03/24 History Allergies Allergy/AdvReac Type Severity Reaction Status Date / Time No Known Allergies Allergy Verified 01/11/24 03:28 Physical Exam Vitals: Vital Signs Temp Pulse Pulse Resp BP BP Pulse Ox 01/11/24 07:00 99.3 F 71 16 119/69 95 01/11/24 05:38 98.4 F 70 18 125/75 97 01/11/24 05:23 74 20 111/73 01/11/24 03:28 98.3 F 84 19 111/75 99 Intake and Output 01/10/24 01/11/24 01/11/24 22:59 06:59 14:59 Other: Weight 90.718 kg Results 01/11/24 03:42 01/11/24 03:42 Cardiac Enzymes 01/11/24 01/11/24 Range/Units 03:42 03:42 AST 27 (17-59) U/L Troponin I <0.012 (0.000-0.034) ng/mL Coagulation 01/11/24 Range/Units 03:42 PT 10.2 (10.0-12.5) sec APTT 22.4 (22.0-30.0) sec CBC 01/11/24 Range/Units 03:42 WBC 8.3 (3.8-10.6) k/uL RBC 4.22 L (4.30-5.90) m/uL Hgb 13.5 (13.0-17.5) gm/dL Hct 41.8 (39.0-53.0) % Plt Count 343 (150-450) k/uL Comprehensive Metabolic Panel 01/11/24 Range/Units 03:42 Sodium 136 L (137-145) mmol/L Potassium 4.1 (3.5-5.1) mmol/L Chloride 106 (98-107) mmol/L Carbon Dioxide 22 (22-30) mmol/L BUN 16 (9-20) mg/dL Creatinine 1.05 (0.66-1.25) mg/dL Glucose 121 H (74-99) mg/dL Calcium 9.9 (8.4-10.2) mg/dL AST 27 (17-59) U/L ALT 18 (4-49) U/L Alkaline Phosphatase 84 (38-126) U/L Total Protein 7.0 (6.3-8.2) g/dL Albumin 4.3 (3.5-5.0) g/dL Current Medications Generic Name Dose Route Start Last Admin Trade Name Freq PRN Reason Stop Dose Admin Sodium Chloride 1,000 mls @ 130 mls/hr 01/11/24 03:28 01/11/24 03:48 Saline 0.9% IV 01/11/24 11:09 130 mls/hr .[id number] STA Administration Cefazolin Sodium 2 gm/ Sodium 50 mls @ 100 mls/hr 01/11/24 08:00 Chloride IVPB Q8HR ANTHONY Protocol Naloxone HCl 0.2 mg 01/11/24 04:41 Naloxone 0.4 Mg/Ml 1 Ml Vial IV Q2M PRN Opioid Reversal Intake and Output 01/10/24 01/11/24 01/11/24 22:59 06:59 14:59 Other: Weight 90.718 kg 01/11/24 03:42 01/11/24 03:42
--- NOTE | 2024-01-11 08:58 | CT ---
EXAMINATION TYPE: CT angio chest CT DLP: 544 mGycm, Automated exposure control for dose reduction was used. DATE OF EXAM: 01/11/2024 8:50 AM COMPARISON: Chest radiograph from same day. CLINICAL INDICATION:Male, 73 years old with history of elevated d-dimer; elevated d-dimer TECHNIQUE/CONTRAST: CTA scan of the thorax is performed with IV Contrast, patient injected with 100 mL of Isovue 370, MIP images are created and reviewed these are created on a separate workstation.. FINDINGS: Pulmonary Artery: There is no evidence for a filling defect within the pulmonary vasculature to sugge st acute pulmonary embolism. The pulmonary artery is of normal size. Lungs/Pleura: No evidence of focal consolidation, pleural effusion or pneumothorax. Airway: Large airways are patent. Heart: Heart is within normal limits for size. Moderate coronary artery atherosclerosis. Vasculature: No evidence of aortic aneurysm. Mediastinum: No gross evidence of adenopathy. Small hiatal hernia with prominent lymph nodes which ar e new from 2018 at the Gastroesophageal junction series 5 image 134 measuring up to 5 mm in short axi s. Musculoskeletal: No acute osseous abnormalities Soft Tissues/lymph nodes: Unremarkable. Lower neck: No significant findings. Upper Abdomen: The gallbladder surgically absent. IMPRESSION: 1. No evidence of pulmonary embolism. 2. Small hiatal hernia with some prominent lymph nodes max of the gastroesophageal junction which ar e new from 2018. Correlate for esophagitis. Consider evaluation of the distal esophagus.
--- NOTE | 2024-01-11 12:15 | CA ---
Transthoracic Echo Report Name: Anirudh Hillman Age: 73 Gender: M : 1950 Exam Date: 01/11/2024 09:48 Exam Location: [facility] Ht (in): 73 Wt (lb): 200 Ordering Physician: Pat Sewell Attending/Referring Phys: [id number], [employer] Concierge Davina Brown RDCS Procedure CPT: Indications: LV function, syncope Cardiac Hx: Technical Quality: Technically difficult study Contrast 1: Definity Total Dose (mL): 2 Contrast 2: Total Dose (mL): MEASUREMENTS (Male / Female) Normal Values 2D ECHO LV Diastolic Volume MOD BP 120.3 cm??? 67 - 155 / 56 - 104 cm??? LV Systolic Volume MOD BP 50.6 cm??? 22 - 58 / 19 - 49 cm??? LV Ejection Fraction MOD BP 58.0 % >= 55 % LV Cardiac Index MOD BP 2183.5 cm???/min???m??? LV Diastolic Volume MOD 4C 114.8 cm??? LV Systolic Volume MOD 4C 49.0 cm??? LV Ejection Fraction MOD 4C 57.3 % LV Cardiac Index MOD 4C 2059.8 cm???/min???m??? LV Diastolic Length 4C 9.6 cm LV Systolic Length 4C 8.3 cm LV Diastolic Volume MOD 2C 89.8 cm??? LV Systolic Volume MOD 2C 32.0 cm??? LV Ejection Fraction MOD 2C 64.4 % LV Cardiac Index MOD 2C 1808.9 cm???/min???m??? LV Diastolic Length 2C 8.4 cm LV Systolic Length 2C 7.1 cm LA Volume 67.1 cm??? 18 - 58 / 22 - 52 cm??? LA Volume Index 30.9 cm???/m??? 16 - 28 cm???/m??? DOPPLER AV Peak Velocity 118.0 cm/s AV Peak Gradient 5.6 mmHg AV Mean Velocity 80.3 cm/s AV Mean Gradient 2.9 mmHg AV Velocity Time Integral 23.5 cm LVOT Peak Velocity 117.1 cm/s LVOT Peak Gradient 5.5 mmHg LVOT Velocity Time Integral 20.8 cm MV Area PHT 3.3 cm??? Mitral E Point Velocity 62.0 cm/s Mitral A Point Velocity 71.2 cm/s Mitral E to A Ratio 0.9 MV Deceleration Time 229.7 ms FINDINGS Left Ventricle Left ventricular ejection fraction is estimated at 60-65 %. Left ventricular cavity size normal. No obvious regional wall motion abnormalities. Right Ventricle Right ventricle not well visualized. Unable to estimate the right ventricular systolic pressure. Right Atrium Right atrium not well visualized. Left Atrium Mildly increased left atrial volume. Mildly increased left atrial area. Mitral Valve Structurally normal mitral valve. No mitral stenosis, regurgitation or prolapse. Aortic Valve Aortic valve not well visualized. No aortic valve stenosis or regurgitation. Tricuspid Valve Structurally normal tricuspid valve. No tricuspid stenosis. No tricuspid regurgitation. Pulmonic Valve Pulmonic valve not well visualized. Pericardium No pericardial effusion. Aorta Aortic root and proximal ascending aorta not well visualized. CONCLUSIONS Normal LV function Previewed by: Dr. Artie Fitzpatrick MD (Electronically Signed) Final Date: 11 January 2024 12:14
[2024-01-11] MEDS: CYANOCOBALAMIN 500 MCG TAB PO SCH (12:51)
[2024-01-11] MEDS: ASCORBIC ACID 500 MG TAB PO SCH (12:51)
[2024-01-11] MEDS: LACTOBACILLUS ACIDOPHILUS/PECT 1 EACH CAPSULE PO SCH (12:52)
[2024-01-11] MEDS: MAGNESIUM OXIDE 400 MG TAB PO SCH (12:52)
[2024-01-11] MEDS: NON FORMULARY DRUG (Zinc Gluconate 50 MG Tab) PO SCH (12:52)
[2024-01-11] MEDS: SODIUM CHLORIDE 0.9% 1,000 ML IV SCH (15:58)
[2024-01-11] MEDS: PANTOPRAZOLE 40 MG TABLET PO SCH (16:03)
--- NOTE | 2024-01-11 16:04 | XR ---
EXAMINATION TYPE: XR knee limited RT DATE OF EXAM: 01/11/2024 3:20 PM CLINICAL INDICATION:Male, 73 years old with history of right knee pain, fall; COMPARISON: None. TECHNIQUE: XR knee limited RT; examined in Frontal, lateral projections. FINDINGS: No evidence of any acute osseous pathology, soft tissue swelling, or joint effusion is no gloria. Tricompartmental osteophyte formation involving the femoral condyles, tibial plateau and patella . Mild joint space narrowing. Atherosclerosis of the arterial vasculature. IMPRESSION: 1. No acute osseous pathology. 2. 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
[2024-01-11] MEDS: ACETAMINOPHEN TAB 325 MG TAB PO PRN (20:29)
[2024-01-12 03:44] VITALS: TEMP 98.5
--- NOTE | 2024-01-12 05:34 | P.HPIM ---
History of Present Illness H&P Date: 01/11/24 This is a very pleasant 73-year-old male who presented to the emergency department via EMS with concerns of possible syncope. Patient was apparently getting up to go to the bathroom and passed out. Patient had status post fall and there is a small bruise and abrasion noted just above the kneecap possibly from the fall. Knee x-ray was negative and patient reports he follows with orthopedics outpatient Dr. Cagle and had an injection as he reports he has been having right knee issues for quite some time and [id number]. Patient also noted he was here in the ER a few days ago with concerns of a left ankle cellulitis or infection as there is significant swelling and redness and had been taking Keflex. Patient reports he was prescribed 10-day supply and had finished about 7 days of it. Chest x-ray and EKG within normal limits and 2D echo was ordered with cardiology on consult. Labs reveal no white count and mildly elevated creatinine which appears to be his baseline. Patient reports he follows with Dr. Godinez in the outpatient setting with no significant health history other than previous kidney stones. Patient denies any fever, shortness of breath, chest pain, lightheadedness or dizziness. On the left lateral ankle there is a boggy area and appears somewhat coming to ahead but there has been no drainage per patient. Orthopedics consulted and has consulted podiatry Dr. Ponce for further evaluation and possible drainage. Will reinitiate IV cefazolin. D-dimer was noted to be elevated and CTA was ordered and negative for PE. REVIEW OF SYSTEMS: CONSTITUTIONAL: No fever, no malaise, no fatigue. HEENT: No recent visual problems or hearing problems. Denied any sore throat. CARDIOVASCULAR: No chest pain, orthopnea, PND, no palpitations, no syncope. PULMONARY: No shortness of breath, no cough, no hemoptysis. GASTROINTESTINAL: No diarrhea, no nausea, no vomiting, no abdominal pain. NEUROLOGICAL: No headaches, no weakness, no numbness. HEMATOLOGICAL: Denies any bleeding or petechiae. GENITOURINARY: Denies any burning micturition, frequency, or urgency. MUSCULOSKELETAL/RHEUMATOLOGICAL: Reports of right knee pain, left ankle pain, with swelling, and redness around the left ankle ENDOCRINE: Denies any polyuria or polydipsia. The rest of the 14-point review of systems is negative. PHYSICAL EXAMINATION: GENERAL: The patient is alert and oriented x3, not in any acute distress. Well developed, well nourished. HEENT: Pupils are round and equally reacting to light. EOMI. No scleral icterus. No conjunctival pallor. Normocephalic, atraumatic. No pharyngeal erythema. No thyromegaly. CARDIOVASCULAR: S1 and S2 present. No murmurs, rubs, or gallops. PULMONARY: Chest is clear to auscultation, no wheezing or crackles. ABDOMEN: Soft, nontender, nondistended, normoactive bowel sounds. No palpable organomegaly. MUSCULOSKELETAL: No joint swelling or deformity. EXTREMITIES: No cyanosis, clubbing, or pedal edema. Left lateral ankle noted to be significantly reddened with swelling noted NEUROLOGICAL: Gross neurological examination did not reveal any focal deficits. SKIN: No rashes. Other than mentioned on the ankle Assessment: Acute syncope, likely vasovagal, ACS ruled out Elevated D-dimer, PE ruled out Right knee pain status post fall, no fractures noted, patient reports history of ongoing right knee pain and recently received an injection at orthopedics office Left lateral ankle cellulitis versus possible bursitis, recently started on Keflex from the ER with no significant improvement GI prophylaxis DVT prophylaxis Full code Plan: Patient was restarted on IV cefazolin with concerns of left lateral ankle cellulitis versus bursitis. Orthopedics consulted Dr. Toni Ponce podiatry surgeon for further evaluation Marked the area of redness and instructed patient to elevate while at rest Monitor for any further fevers or drainage noted. Obtain cultures if draining Patient evaluated by cardiology ordered a 2D echo which was normal with an EF of 60 to 65% and normal LV systolic function recommending outpatient follow-up and outpatient stress testing Patient underwent CTA as there was a mildly elevated D-dimer noted which was negative for PE. There was a small hiatal hernia with some prominent lymph nodes max at the gastroesophageal junction which is new from 2018 to correlate for esophagitis. Patient is not having any symptoms and will be referred to outpatient for possible endoscopy and further evaluation. Will add Protonix daily Medications reviewed and resumed as appropriate Await orthopedic evaluation for possible I&D The impression and plan of care has been dictated by Jillian Huggins, Nurse Practitioner as directed. Dr. Kerri MD I have performed a history and examination and MDM of this patient, discussed the same with the dictator, and agree with the dictator's assessment and plan as written ,documented as a scribe. Based on total visit time, I have performed more than 50% of the visit. Past Medical History Past Medical History: No Reported History Additional Past Medical History / Comment(s): KIDNEY STONE, chronic low back pain. History of Any Multi-Drug Resistant Organisms: None Reported Past Surgical History: Cholecystectomy, Tonsillectomy Additional Past Surgical History / Comment(s): vasectomy Past Psychological History: No Psychological Hx Reported Smoking Status: Never smoker Past Alcohol Use History: None Reported Past Drug Use History: None Reported Medications and Allergies Home Medications Medication Instructions Recorded Confirmed Type L.acidoph,Paracasei, B.lactis 1 cap PO DAILY 03/14/16 01/11/24 History [Probiotic] Magnesium 200 mg PO DAILY 03/14/16 01/11/24 History Beta Glucan 1 tab PO DAILY 03/29/18 01/11/24 History Cyanocobalamin (Vitamin B-12) 1,000 mcg PO DAILY 03/29/18 01/11/24 History [Vitamin B-12] Ascorbic Acid [Vitamin C] 1,000 mg PO DAILY 01/03/24 01/11/24 History Cephalexin [Keflex] 500 mg PO Q6HR #40 cap 01/03/24 01/11/24 Rx Ergocalciferol (Vitamin D2) 1,250 mcg PO WE 01/03/24 01/11/24 History [Drisdol (50,000 Iu)] Zinc Gluconate [Zinc] 50 mg PO DAILY 01/03/24 01/11/24 History Allergies Allergy/AdvReac Type Severity Reaction Status Date / Time No Known Allergies Allergy Verified 01/11/24 09:12 Physical Exam Vitals: Vital Signs Temp Pulse Pulse Resp BP BP Pulse Ox 01/11/24 07:00 99.3 F 71 16 119/69 95 01/11/24 05:38 98.4 F 70 18 125/75 97 01/11/24 05:23 74 20 111/73 01/11/24 03:28 98.3 F 84 19 111/75 99 Intake and Output 01/10/24 01/11/24 01/11/24 22:59 06:59 14:59 Other: Weight 90.718 kg Results CBC & Chem 7: 01/11/24 03:42 01/11/24 03:42 Labs: Abnormal Lab Results - Last 24 Hours (Table) 01/11/24 01/11/24 01/11/24 Range/Units 03:42 03:42 03:42 RBC 4.22 L (4.30-5.90) m/uL D-Dimer 1.30 H (<0.60) mg/L FEU Sodium 136 L (137-145) mmol/L Glucose 121 H (74-99) mg/dL Thrombosis Risk Factor Assmnt - Choose All That Apply Each Factor Represents 1 point: Obesity (BMI >25) Each Risk Factor Represents 2 Points: Age 61-74 years Thrombosis Risk Factor Assessment Total Risk Factor Score: 3 Thrombosis Risk Factor Assessment Level: Moderate Risk
[2024-01-12 07:46] VITALS: BP 131/77; PULSE 59; RESP 16
--- NOTE | 2024-01-12 07:52 | P.PN ---
Subjective HISTORY OF PRESENT ILLNESS: This is a 73-year-old male with no significant past medical history. Patient does not follow with a top taper machine. We have been asked to see the patient in consultation for syncope. Patient examined at the bedside. Patient states he has been having redness and swelling of his left foot and ankle for about a week. He states that he sought medical attention on Monday and was started on Keflex. Patient states he has also been taking ibuprofen at home. He states that he got up to go to the bathroom and on his way to the bathroom had a syncopal episode. The patient denies having any chest pain or pressure. Denies having any shortness of breath. He denies any dizziness or lightheadedness. Denies any family history of CAD. Patient does report that he got his right knee injected by Dr. Cagle about 3 to 4 weeks ago. He continues to have redness and swelling of his left lateral ankle however he states this has improved over the past few days. DIAGNOSTICS: - EKG reveals sinus mechanism with no signs of acute ischemia. - Chest xray negative for acute process. - Laboratory data: WBC 8.3. Hemoglobin 13.5. Platelet count 343. D-dimer 1.30. Sodium 136. Potassium 4.1. BUN 16. Creatinine 1.05. Troponin negative x 1 - Current home cardiac medications include none. 01/12/2024 Patient examined this morning at bedside. Patient denies chest pain or pressure. He denies shortness of breath. Vital signs are stable. CTA negative for pulmonary embolism. Echocardiogram completed revealing ejection fraction 60 to 65%. PHYSICAL EXAM: VITAL SIGNS: Reviewed. GENERAL: Well-developed in no acute distress. HEENT: Head is normocephalic. Pupils are equal, round. Sclerae anicteric. Mucous membranes of the mouth are moist. Neck supple. No JVD or thyromegaly LUNGS: Respirations even and unlabored. Lungs essentially clear to auscultation bilaterally. HEART: Regular rate and rhythm. S1 and S2 heard. ABDOMEN: Soft. Nondistended. Nontender. EXTREMITIES: Normal range of motion. No clubbing or cyanosis. Peripheral pulses intact. left lateral ankle with erythema and edema noted. NEUROLOGIC: Awake and alert. Oriented x 3. ASSESSMENT: Syncope, suspect vasovagal in nature Elevated D-dimer, CTA negative for PE Left lateral ankle cellulitis/bursitis PLAN: Continue current cardiac medications Patient is currently stable from a cardiac standpoint Will plan for outpatient stress testing We will sign off. Please reconsult if needed. Nurse practitioner note has been reviewed by physician. Signing provider agrees with the documented findings, assessment, and plan of care documented by [employer] as a scribe. Objective - Vital Signs Vital signs: Vital Signs Temp 98.5 F 01/12/24 07:00 Pulse 59 L 01/12/24 07:00 Resp 16 01/12/24 07:00 BP 131/77 01/12/24 07:00 Pulse Ox 97 01/12/24 07:00 FiO2 Intake & Output 01/11/24 01/12/24 01/12/24 18:59 06:59 18:59 Intake Total 236 Balance 236 Intake: Oral 236 Other: Voiding Method Toilet Toilet # Voids 2 1 - Labs CBC & Chem 7: 01/11/24 03:42 01/11/24 03:42
--- NOTE | 2024-01-12 09:56 | P.CNOR ---
History of Present Illness - [facility] Consult date: 01/12/24 Consult reason: other (infected bursa left ankle) History of present illness: 73 y/o male visited at bedside evaluated for infected bursa left ankle. Patient states symptoms started over a week ago. He went to the [facility] ER approx. 10 days ago, and he was given oral antibiotics. The condition worsened and then he suffered a syncopal episode and was readmitted. Cardiology workup was negative. The ankle now has a raised area with localized erythema. Patient denies N/V/F/C. Pain has lessened since admission but the size of the area has not. Past Medical History Past Medical History: No Reported History Additional Past Medical History / Comment(s): KIDNEY STONE, chronic low back pain. History of Any Multi-Drug Resistant Organisms: None Reported Past Surgical History: Cholecystectomy, Tonsillectomy Additional Past Surgical History / Comment(s): vasectomy Past Psychological History: No Psychological Hx Reported Smoking Status: Never smoker Past Alcohol Use History: None Reported Past Drug Use History: None Reported Medications and Allergies Home Medications Medication Instructions Recorded Confirmed Type L.acidoph,Paracasei, B.lactis 1 cap PO DAILY 03/14/16 01/11/24 History [Probiotic] Magnesium 200 mg PO DAILY 03/14/16 01/11/24 History Beta Glucan 1 tab PO DAILY 03/29/18 01/11/24 History Cyanocobalamin (Vitamin B-12) 1,000 mcg PO DAILY 03/29/18 01/11/24 History [Vitamin B-12] Ascorbic Acid [Vitamin C] 1,000 mg PO DAILY 01/03/24 01/11/24 History Cephalexin [Keflex] 500 mg PO Q6HR #40 cap 01/03/24 01/11/24 Rx Ergocalciferol (Vitamin D2) 1,250 mcg PO WE 01/03/24 01/11/24 History [Drisdol (50,000 Iu)] Zinc Gluconate [Zinc] 50 mg PO DAILY 01/03/24 01/11/24 History Allergies Allergy/AdvReac Type Severity Reaction Status Date / Time No Known Allergies Allergy Verified 01/11/24 09:12 Physical Examination Osteopathic Statement: *. No significant issues noted on an osteopathic structural exam other than those noted in the History and Physical/Consult. Patient is A/O x 3. No distress Appears well groomed and well nourished Localized raised area over the lateral mallolus left ankle. No open wound. There is erythema over the area. Marker indicating admission erythema shows that it has improved slightly. The area is firm and TTP. No evidence of lymphangitis. No lymphadenopathy in the popliteal fossa or inguinal area. Skin is otherwise warm and supple dosalis pedis and posterior tibial pulses are 2/4. CFT <3sec to all digits left foot Muscle strength 5/5 in all groups in the lower leg and foot Intact light touch sensation throughout the foot Results - Labs Labs: H & H 01/11/24 Range/Units 03:42 Hgb 13.5 (13.0-17.5) gm/dL Hct 41.8 (39.0-53.0) % Coagulation 01/11/24 Range/Units 03:42 INR 0.9 (<1.2) Result Diagrams: 01/11/24 03:42 01/11/24 03:42 Assessment and Plan (1) Cellulitis of left ankle Current Visit: No Status: Acute Code(s): L03.116 - CELLULITIS OF LEFT LOWER LIMB SNOMED Code(s): 40649701253165118 Plan: Had a long discussion with the patient regarding treatment options. His is at home and has multiple medical issues. He is the primary caregiver and does not want to be away from home any longer than necessary. Given the findings in the P/E, it is my opinion that there is an abscess but there is no indication of systemic infection. I recommend an I&D, but both the patient and I are comfortable doing this outpatient, allowing him to be discharged to care for his . My office can schedule the procedure which can be done in the outpatient setting. Recommend that the patient continue on oral Keflex, 1000mg BID x 7 days. I would like him to f/u with me on Monday- at my office. In the meantime my office will schedule the procedure for next - From an orthopedic standpoint, patient is cleared for D/C
--- NOTE | 2024-01-15 05:53 | P.DS ---
Providers Date of admission: 01/11/24 04:41 Expected date of discharge: 01/12/24 Attending physician: Dayton Ruiz Consults: 01/11/24 09:39 Consult Physician Routine Consulting Provider: Toni Ponce Reason/Comments: lateral malleolus bursitis Do you want consulting provider notified?: Yes Primary care physician: Jose Godinez [facility] Course: Final diagnosis Acute syncope, likely vasovagal, ACS ruled out Elevated D-dimer, PE ruled out Right knee pain status post fall, no fractures noted, patient reports history of ongoing right knee pain and recently received an injection at orthopedics office Left lateral ankle cellulitis, present on admission GI prophylaxis DVT prophylaxis Full code Discharge disposition Patient is being discharged in a stable condition with guarded prognosis to home. Patient will follow-up with Dr. Godinez in the outpatient setting upon discharge. Patient is to continue with 1 g twice daily of Keflex and close outpatient follow-up with podiatry surgeon Dr. Toni Ponce as scheduled this week. Total time taken is greater than 35 minutes. Hospital course This is a 73-year-old male who was recently admitted with acute syncope likely vasovagal, ACS ruled out. Patient evaluated by cardiology recommending outpatient follow-up as needed. Patient also with an elevated D-dimer underwent CT angio which was negative for PE. Patient having some left ankle redness and swelling had been on antibiotics from the ER last week having some increasing pain and redness evaluated by podiatry Dr. Toni Ponce. Patient will continue on oral Keflex and follow-up this week in the clinic for possible I&D and further intervention. Patient extremely anxious to get home and care for his and is agreeable to following up outpatient. Patient has been cleared by consultations. Please refer to consultation notes for further HPI. Currently no reports of chest pain, shortness of breath, or palpitations. Patient is afebri le. No reports of nausea or vomiting and patient is tolerating diet. Patient will be discharged home today. Physical exam: Gen: This is a 73-year-old male who is awake, alert and oriented x 3, well- developed, well-nourished HEENT: Head is atraumatic, normocephalic. Pupils equal, round. Sclerae is anicteric. NECK: Supple. No JVD. No lymphadenopathy. No thyromegaly. LUNGS: Clear to auscultation. No wheezes or rhonchi. No intercostal retractions. HEART: Regular rate and rhythm. No murmur. ABDOMEN: Soft. Bowel sounds are present. No masses. No tenderness. EXTREMITIES: No pedal edema. No calf tenderness. Left ankle lateral malleolus area with redness and swelling that somewhat appears to be coming to ahead with an area of bogginess. Redness has improved since admission NEUROLOGICAL: Patient is awake, alert and oriented x3. Cranial nerves 2 through 12 are grossly intact. Please refer to medication reconciliation sheet for a list of medications. The impression and plan of care has been dictated by Jillian Huggins, Nurse Practitioner as directed. Dr. Kerri MD I have performed a history and examination and MDM of this patient, discussed the same with the dictator, and agree with the dictator's assessment and plan as written ,documented as a scribe. Based on total visit time, I have performed more than 50% of the visit. Patient Condition at Discharge: Stable Plan - Discharge Summary New Discharge Prescriptions: New Acetaminophen Tab [Tylenol] 650 mg PO Q6HR PRN tab PRN Reason: Fever And/ Or Pain Continue Magnesium 200 mg PO DAILY L.acidoph,Paracasei, B.lactis [Probiotic] 1 cap PO DAILY Beta Glucan 1 tab PO DAILY Cyanocobalamin (Vitamin B-12) [Vitamin B-12] 1,000 mcg PO DAILY Ergocalciferol (Vitamin D2) [Drisdol (50,000 Iu)] 1,250 mcg PO WE Zinc Gluconate [Zinc] 50 mg PO DAILY Ascorbic Acid [Vitamin C] 1,000 mg PO DAILY Changed Cephalexin [Keflex] 1,000 mg PO BID 10 Days #40 cap Discharge Medication List L.acidoph,Paracasei, B.lactis [Probiotic] 1 cap PO DAILY 03/14/16 [History] Magnesium 200 mg PO DAILY 03/14/16 [History] Beta Glucan 1 tab PO DAILY 03/29/18 [History] Cyanocobalamin (Vitamin B-12) [Vitamin B-12] 1,000 mcg PO DAILY 03/29/18 [History] Ascorbic Acid [Vitamin C] 1,000 mg PO DAILY 01/03/24 [History] Ergocalciferol (Vitamin D2) [Drisdol (50,000 Iu)] 1,250 mcg PO WE 01/03/24 [History] Zinc Gluconate [Zinc] 50 mg PO DAILY 01/03/24 [History] Acetaminophen Tab [Tylenol] 650 mg PO Q6HR PRN tab 01/12/24 [Rx] Cephalexin [Keflex] 1,000 mg PO BID 10 Days #40 cap 01/12/24 [Rx] Follow up Appointment(s)/Referral(s): Toni Ponce DPM [Doctor of Osteopathic Medicine] - 01/16/24 10:00 am Jose Godinez DO [Primary Care Provider] - 1-2 days Artie Fitzpatrick MD [STAFF PHYSICIAN] - 01/25/24 8:45 am Activity/Diet/Wound Care/Special Instructions: Activity limited until follow-up Follow-up with Dr. Toni Ponce in the outpatient setting as discussed and scheduled. Call his office to confirm appointment as it was written he wanted to see you Monday with possible procedure scheduled for Monday of next week Follow-up cardiology outpatient to discuss possible stress testing in the outpatient setting Continue antibiotics Keflex 1000 mg twice daily until instructed otherwise by Dr. Ponce next week Continue to elevate lower extremities and avoid itching or scratching or popping that left ankle wound Monitor for any fevers and use Tylenol or Motrin Discharge Disposition: HOME SELF-CARE
[2024-01-17] MEDS ORDERED: ERGOCALCIFEROL 1,250 MCG (50,000 IU) CAPSULE PO SCH (12:06)
== END 2024-01-12 14:24 | disposition home or self-care (01) ==
LOC: EC 03:24 → 6NMEDSUR 04:41
PROVIDERS: ADMIT Hospitalist; ATTEND Hospitalist
DX: R55 Syncope and collapse (principal); R79.89 Other specified abnormal findings of blood chemistry; M25.561 Pain in right knee; L03.116 Cellulitis of left lower limb; Z87.442 Personal history of urinary calculi
CPT/HCPCS: 96365; 96366 ×2; 99285; 36415; 93005; 93306; 85379; 80053; 83605; 84550; 84484; 85025; 85610; 85730; 73560; 71046; 71275; G0378 ×2; J0690 ×2; Q9957; Q9967

== ENCOUNTER → 2024-01-16 | Outpatient (CLI) | payer MEDICARE ==
--- NOTE | 2024-01-20 20:17 | MR ---
EXAMINATION TYPE: MR Prostate wo/w con DATE OF EXAM: 01/16/2024 8:07 AM COMPARISON: None. CLINICAL INDICATION:Male, 73 years old with history of R97.20 elevated PSA; Elevated PSA. TECHNIQUE: Multi-planar, multi-sequence imaging of the pelvis is performed prior to and following the uncomplicated administration of bolus intravenous gadolinium. CONTRAST: 9 Gadavist Interpretive Criteria: PI-RADS v2.1 SERUM PSA: 12-05-23 = 6.52 5-08-29 = 5.10 SURGICAL PATHOLOGY: No data available. FINDINGS: Prostatic dimensions: 6.0 x 5.1 x 3.5 cm. Ellipsoid Volume:56.08 (PSA density=0.12 ng/mL/mL) CENTRAL GLAND (Central and Transition Zones/CZ+TZ): Multiple bilateral, heterogenous appearing hypertrophic stromal nodules, without suspicious lesion. M edian lobe hypertrophy with protrusion into the base of the bladder. (PI-RADS 2) PERIPHERAL ZONE (PZ): Lower T2 signal lesion with similar ill-defined higher DWI and associated low ADC signal lesion in th e right lateral peripheral zone mid gland measuring 11 x 12 mm postcontrast enhancement within this r egion. (PI-RADS 4) SEMINAL VESICLES (SV): Symmetric and unremarkable. PERIPROSTATIC TISSUES: Unremarkable. LYMPH NODES: No enlarged pelvic lymph node. REMAINING PELVIS: Bladder wall is within normal limits given distention. No abnormal free or organized intrapelvic fluid collection. No pathologic bowel dilation or mural thickening. No hernia visualized OSSEOUS STRUCTURES: No suspicious osseous abnormality. IMPRESSION: 1. PI-RADS 4 Right lateral peripheral zone mid gland lesion. Prior biopsy of this region should be pe rformed. 2. Moderate BPH, estimated gland volume 56.08 mL. 3. No suspicious osseous lesion. No lymphadenopathy. No evidence of prostate adenocarcinoma involving the periprostatic tissues.
== END | disposition home or self-care (01) ==
LOC: RADMRIMAIN 06:58
PROVIDERS: ATTEND Urology
DX: N40.0 Benign prostatic hyperplasia without lower urinary tract symptoms (principal); R97.20 Elevated prostate specific antigen [PSA]
CPT/HCPCS: 72197; A9585

== ENCOUNTER → 2024-03-18 | Outpatient (CLI) | payer MEDICARE | END | disposition home or self-care (01) | LOC: LABWHC1 13:40 | PROVIDERS: ATTEND Urology | DX: R97.20 Elevated prostate specific antigen [PSA] | CPT/HCPCS: 87086 ==

== ENCOUNTER 2024-03-26 13:00 | Day surgery (SDC) | payer MEDICARE ==
[2024-03-26] MEDS ORDERED: GENTAMICIN 40 MG/ML 2 ML VIAL ONE ×2 (13:58)
[2024-03-26] MEDS ORDERED: ONDANSETRON 4 MG/2 ML VIAL ONE ×2 (13:58)
[2024-03-26] MEDS ORDERED: LACTATED RINGERS 1,000 ML BAG ONE (15:00)
[2024-03-26] MEDS ORDERED: LIDOCAINE 1% INJ 10MG/ML (20 ML MDV) ONE (15:36)
[2024-03-26] MEDS ORDERED: PROPOFOL 10 MG/ML 20 ML VIAL IV ONE (15:36)
[2024-03-26] MEDS ORDERED: ceFAZolin 10 GM VIAL IVPB ONE (15:41)
[2024-03-26] MEDS ORDERED: SODIUM CHLORIDE 0.9% 50 ML BAG IV ONE (15:41)
== END 2024-03-26 16:40 ==
LOC: OR 13:00
PROVIDERS: ATTEND Urology
DX: C61 Malignant neoplasm of prostate (principal); K21.9 Gastro-esophageal reflux disease without esophagitis; Z79.899 Other long term (current) drug therapy
CPT/HCPCS: 88305

== ENCOUNTER → 2024-06-04 | Outpatient (CLI) | payer MEDICARE ==
[2024-06-04 18:49] LABS: Basophils # (A) 0.04 X 10*3/uL (0.00-0.10); Eosinophils # (A) 0.14 X 10*3/uL (0.04-0.35); Eosinophils % (A) 3.5 %; HCT 44.3 % (39.6-50.0); Lymphocytes % (A) 22.8 %; MCH 33.1 pg (27.0-32.0); MCHC 33.9 g/dL (32.0-37.0); MCV 97.8 FL (80.0-97.0); Mean Platelet Volume 9.9 FL (9.5-12.2); Monocytes # (A) 0.37 X 10*3/uL (0.20-1.00); Monocytes % (A) 9.4 %; NRBC Per 100 WBC 0 X 10*3/uL (0.00-0.01); Neutrophils # (A) 2.48 X 10*3/uL (1.80-7.70); Neutrophils % (A) 62.8 %; Platelet Count 313 X 10*3/uL (140-440); RBC 4.53 X 10*6/uL (4.40-5.60); RDW 14.6 % (11.5-14.5); WBC 3.95 X 10*3/uL (4.50-10.00)
[2024-06-04 18:55] LABS: Appearance,Urine Clear (Clear); Bilirubin,Urine Negative (Negative); Blood,Urine Negative (Negative); Color,Urine Yellow (Yellow); Ketones,Urine Negative (Negative); Nitrite,Urine Negative (Negative); Specific Gravity,Urine 1.009 (1.001-1.030); Urobilinogen,Urine 0.2 E.U./DL
[2024-06-04 19:50] LABS: BUN/Creat Ratio 17.36 Ratio (12.00-20.00); Blood Urea Nitrogen 19.1 mg/dL (9.0-27.0); Calcium 9.7 mg/dL (8.7-10.3); Carbon Dioxide 27.7 mmol/L (21.6-31.8); Chloride 103 mmol/L (96-109); Glucose 111 mg/dL (70-110); Potassium 4.4 mmol/L (3.5-5.5); Sodium 142 mmol/L (135-145)
== END | disposition home or self-care (01) ==
LOC: LABPAT 14:00
PROVIDERS: ATTEND Urology
CPT/HCPCS: 80048; 81003; 85025; 86850; 86900; 86901; 87086; 93005

== ENCOUNTER 2024-06-12 10:23 | Day surgery (SDC) | payer MEDICARE ==
[2024-06-07 11:39] VITALS: BMI 26.4
[2024-06-12] MEDS: IV FLUID CONTINUATION 1,000 ML IV ONE ×4 (11:09→16:59)
[2024-06-12] MEDS: LACTATED RINGERS 1,000 ML IV SCH (11:50)
[2024-06-12] MEDS: MIDAZOLAM 2 MG/2 ML VIAL IV ONE (11:54)
--- NOTE | 2024-06-12 12:08 | P.ANPRN ---
Procedure Note - Anesthesia - Nerve Block Performed Bilateral Erector Spinae Single Time Out Performed: Yes Date of Procedure: 06/12/24 Procedure Start Time: 12:00 Procedure Stop Time: 12:05 Location of Patient: PreOp Indication: Acute Post-Operative Pain, Analgesia, Requested by Surgeon Sedation Type: Sedate with meaningful contact maintained Preparation: Sterile Prep Position: Prone Needle Types: Pajunk Needle Gauge: 21 Ultrasound used to visualize needle placement: Yes Ultrasound used to observe medication spread: Yes Injectate: 0.5% Ropivacaine (see comment for volume) (Ropiv 20ml+Decadron 4mg---Each side. L1-Needle level.)
[2024-06-12] MEDS: ONDANSETRON 4 MG/2 ML VIAL IVP ONE (12:14)
[2024-06-12] MEDS: DEXAMETHASONE SOD PHOSPHATE 4 MG/ML 1 ML VIAL IV ONE (12:16)
[2024-06-12] MEDS: HEPARIN SODIUM,PORCINE 5,000 UNIT/ML 1 ML VIAL SQ PRN (12:19)
--- NOTE | 2024-06-12 12:20 | P.HPIHPCON ---
History of Present Illness H&P Date: 06/12/24 Chief Complaint: prostate cancer This is a 74-year-old male with a history of Dave 7(4+3) prostate cancer. Discussed with him given his pathology option of robotic radical prostatectomy versus radiation therapy was discussed with him in detail, risk and benefit of each approach were discussed. He agreed to proceed with a robotic radical prostatectomy, aware the risk which includes but limited to bleeding, infection, urinary incontinence, erectile dysfunction injury to nearby organs. Discussed also the risk of cancer recurrence, and the need for additional treatments and the need for postoperative surveillance. Consent for Procedure: I have explained the operation/procedure to the patient, including the risks, benefits, side effects, alternative therapies (including not receiving the proposed treatment or service), the likelihood of the patient achieving his/her goals, and potential recuperation problems for the procedure/sedation/analgesia, as well as any blood products, if indicated. I also explained to the patient the risks, benefits and side effects of the alternatives, as well as the risks related to not receiving the proposed procedure, care, treatment, or services. Past Medical History Past Medical History: Cancer, Osteoarthritis (OA) Additional Past Medical History / Comment(s): Current prostate cancer, hx kidney stone, chronic low back pain, bad right knee, gets steroid injections every 3 months, last 2 months ago, varicose veins. History of Any Multi-Drug Resistant Organisms: None Reported Past Surgical History: Cholecystectomy, Tonsillectomy Additional Past Surgical History / Comment(s): Vasectomy. Past Anesthesia/Blood Transfusion Reactions: No Reported Reaction Smoking Status: Never smoker - Past Family History Mother Family Medical History: Cancer Additional Family Medical History / Comment(s): Colon cancer. Medications and Allergies Home Medications Medication Instructions Recorded Confirmed Type L.acidoph,Paracasei, B.lactis 1 cap PO DAILY 03/14/16 06/12/24 History [Probiotic] Magnesium 200 mg PO DAILY 03/14/16 06/12/24 History Beta Glucan 1 tab PO DAILY 03/29/18 06/12/24 History Cyanocobalamin (Vitamin B-12) 1,000 mcg PO DAILY 03/29/18 06/12/24 History [Vitamin B-12] Ascorbic Acid [Vitamin C] 1,000 mg PO DAILY 01/03/24 06/12/24 History Acetaminophen Tab [Tylenol] 650 mg PO Q6HR PRN 06/07/24 06/12/24 History Cholecalciferol [Vitamin D3 (125 10,000 units PO WE 06/07/24 06/12/24 History Mcg = 5000 Iu)] Zinc (Unknown Dose) 1 tab PO DAILY 06/07/24 06/12/24 History Allergies Allergy/AdvReac Type Severity Reaction Status Date / Time No Known Allergies Allergy Verified 06/12/24 11:18 Surgical - Exam Vital Signs Temp Pulse Resp BP Pulse Ox 97.2 F L 76 18 148/94 96 06/12/24 11:17 06/12/24 11:17 06/12/24 11:17 06/12/24 11:17 06/12/24 11:17 - General no distress, no pain - Eyes normal ocular movement, no pale - ENT normal nares, normal mucosa - Respiratory normal expansion, normal respiratory effort Assessment and Plan Assessment: OR for robotic radical prostatectomy with bilateral pelvic lymph node dissection
[2024-06-12] MEDS ORDERED: LIDOCAINE 1% INJ 10MG/ML (20 ML MDV) ONE (12:31)
[2024-06-12] MEDS ORDERED: GLYCOPYRROLATE 0.2 MG/ML 2 ML VIAL ONE (12:31)
[2024-06-12] MEDS ORDERED: NEOSTIGMINE 1 MG/ML 10 ML VIAL ONE (12:31)
[2024-06-12] MEDS ORDERED: PHENYLEPHRINE-0.9% NACL SYG 1,000 MCG/10 ML SYRINGE ONE (12:31)
[2024-06-12] MEDS ORDERED: DEXAMETHASONE SOD PHOSPHATE 4 MG/ML 1 ML VIAL ONE (12:31)
[2024-06-12] MEDS ORDERED: ROPIVACAINE 5 MG/ML 30 ML VIAL ONE (12:31)
[2024-06-12] MEDS ORDERED: fentaNYL (PF) 50 MCG/ML 2 ML AMP ONE (12:31)
[2024-06-12] MEDS ORDERED: MIDAZOLAM 2 MG/2 ML VIAL ONE (12:31)
[2024-06-12] MEDS ORDERED: HYDROmorphone (PF) 1 MG/ML ONE (12:31)
[2024-06-12] MEDS ORDERED: SUCCINYLCHOLINE CHLORIDE 200 MG/10 ML VIAL IV ONE (12:31)
[2024-06-12] MEDS ORDERED: ROCURONIUM 10 MG/ML (5 ML VIAL) IV ONE (12:31)
[2024-06-12] MEDS ORDERED: PROPOFOL 10 MG/ML 20 ML VIAL IV ONE (12:31)
[2024-06-12] MEDS ORDERED: ACETAMINOPHEN TAB 325 MG TAB PO PRN (12:50)
[2024-06-12] MEDS ORDERED: HYDROmorphone 2 MG/ML 1 ML SYRINGE IVP PRN (12:52)
[2024-06-12] MEDS ORDERED: HYDROcodone/APAP 5-325MG 1 EACH TAB PO PRN (12:54)
[2024-06-12] MEDS: BUPIVACAINE (PF) 0.25% 30 ML VIAL SQ ONE ×2 (13:00→16:25)
[2024-06-12] MEDS: LACTATED RINGERS 1,000 ML IV ONE (14:59)
--- NOTE | 2024-06-12 16:31 | P.OP ---
Date of Procedure: 06/12/24 Preoperative Diagnosis: Prostate cancer Postoperative Diagnosis: Same Procedure(s) Performed: Robotic assisted laparoscopic radical prostatectomy with bilateral pelvic lymph node dissection Implants: None Anesthesia: KALPESHA Surgeon: Checo Parker Estimated Blood Loss (ml): 150 Pathology: other (Prostate, bilateral seminal vesicle, bilateral pelvic lymph nodes) Condition: stable Disposition: PACU Indications for Procedure: This is a 74-year-old male with a history of Dave 7(4+3) prostate cancer. Discussed with him given his pathology option of robotic radical prostatectomy versus radiation therapy was discussed with him in detail, risk and benefit of each approach were discussed. He agreed to proceed with a robotic radical prostatectomy, aware the risk which includes but limited to bleeding, infection, urinary incontinence, erectile dysfunction injury to nearby organs. Discussed also the risk of cancer recurrence, and the need for additional treatments and the need for postoperative surveillance. Description of Procedure: After preoperative antibiotics were started, the patient was taken to the operating room. Anesthesia was induced and the patient was placed in a supine position, with adequate padding of the pressure points, shoulders, back, legs and arms. He was then prepped and draped in the standard fashion. A critical pause was performed using two patient identifiers. A 16F benedict catheter was placed to gravity drainage. A pneumo-peritoneum was created with placement of a Veress needle to 20 mm Hg without complication, and a 8 Fr trocar was placed above the umbillicus. Under direct vision a 8mm robotic ports was placed lateral to each rectus slightly below the camera port. The left iliac fossa 8mm port was placed. The right orthopedic assistant right iliac fossa 12mm port and right paramedian 5mm portwere placed. After the patient was placed in the trendelenberg position, the robot was then docked to the 8mm robotic ports and then each robotic arm and tower was checked in relation to the patient's legs and hands to avoid inadvertent compression. The peritoneal cavity was inspected. An inverted U-shaped incision began laterally to the left medial umbilical ligament and extended high across the midline to the right umbilical ligament. The limbs of the "U" extended to the level of the vasa on both sides. We next developed the preperitoneal space and the space of Retzius. Cautery was used to dissected the bladder away from the prostate. After the anterior bladder neck was incised and the bladder entered the the posterior bladder neck was exposed and the ureteral orifces identified. The posterior bladder neck was then incised and dissected away from the prostate. The vas and the seminal vesicles were now exposed and dissected to their insertions into the prostate and were not spared. The posterior layer of the Denonvillier's fascia was incised to enter bobbi the plane between prostate and perirectal fat. Nerve preservation was performed using the vessel sealer, complete nerve preservation was performed on the left, partial nerve preservation was performed on the right. The puboprostatic ligament was incised where it inserted into the apex of the prostate and a plane between urethra and dorsal venous complex developed to expose the anterior urethral surface. The anterior wall of the urethra was transected with the cut setting a few millimeters distal to the apex of the prostate. The dorsal vein was ligated using 3-0 V lock bilateral obturator and external iliac lymph node packets were carefully dissected after careful visualization of the hypogastric artery and obturator nerve. There was careful attention paid to hemostasis with judicious use of cautery. The urethrovesical anastomosis was performed . the posterior denovillers was reapproximated using 3-0 V lock. A 6 and 6 inch 3-0 V-Lock suture was used to anastomose the urethra and bladder, starting at the 6:00 posterior position. Mucosa was secured in every stitch, to ensure a mucosa to mucosa anastomosis. The stitch was regularly cinched and the anastomosis tightened. Care was taken to not violate the ureteral orifices. The Benedict catheter was advanced, the bladder filled, and the anastomosis was tested, as described above. Anastomsis was watertight at 150 mL The periumbilical fascia was closed with 1-0-PDS suture in running fashion. All ports were closed with a subcuticular 4-0 monocryl and Dermabond. Sponge, instrument, and needle counts were correct at the end of the case x2. All specimens including prostate and lymph nodes were sent to pathology for diagnosis and will be available in a week. The patient tolerated the surgery well and without complication. He awoke without difficulty and was taken to the recovery room in stable condition
[2024-06-12] MEDS: HYDROmorphone 0.5 MG/0.5 ML SYRINGE IVP PRN (17:14)
[2024-06-12] MEDS: HEPARIN SODIUM,PORCINE 5,000 UNIT/ML 1 ML VIAL SQ SCH (18:41)
[2024-06-12] MEDS: KETOROLAC 15 MG/ML 1 ML VIAL IVP SCH (18:48)
[2024-06-12] MEDS: D5-0.45% NACL WITH KCL 20MEQ/L 1,000 ML IV SCH (22:14)
[2024-06-13 08:33] VITALS: BP 113/67; PULSE 52; RESP 18; TEMP 97.7
[2024-06-13] MEDS: LACTOBACILLUS ACIDOPHILUS/PECT 1 EACH CAPSULE PO SCH (08:53)
[2024-06-13] MEDS: CYANOCOBALAMIN 500 MCG TAB PO SCH (08:53)
[2024-06-13] MEDS: ZINC SULFATE 220 MG CAP PO SCH (08:53)
[2024-06-13] MEDS: MAGNESIUM OXIDE 400 MG TAB PO SCH (08:53)
[2024-06-13] MEDS: ASCORBIC ACID 500 MG TAB PO SCH (08:53)
--- NOTE | 2024-06-13 09:22 | P.DS ---
Providers Attending physician: Checo Parker MD Primary care physician: [facility] Course: This is a 74-year-old male with history of prostate cancer. Underwent a robotic radical prostatectomy on June 12. Please see op note dated June 12 for surgery details. He was admitted to the hospital postoperatively. He was discharged home on postop day #1. At time of discharge he was tolerating a diet, ambulating, pain was controlled Plan - Discharge Summary Discharge Rx Participant: Yes New Discharge Prescriptions: New Ketorolac [Toradol] 10 mg PO Q6HR PRN #15 tab PRN Reason: Pain Sennosides/Docusate Sodium [Senna Plus 8.6-50 mg Tablet] 1 each PO DAILY 7 Days tab Ciprofloxacin HCl [Cipro] 250 mg PO Q12HR 3 Days #6 tab No Action Magnesium 200 mg PO DAILY L.acidoph,Paracasei, B.lactis [Probiotic] 1 cap PO DAILY Beta Glucan 1 tab PO DAILY Cyanocobalamin (Vitamin B-12) [Vitamin B-12] 1,000 mcg PO DAILY Cholecalciferol [Vitamin D3 (125 Mcg = 5000 Iu)] 10,000 units PO WE Acetaminophen Tab [Tylenol] 650 mg PO Q6HR PRN PRN Reason: Pain Ascorbic Acid [Vitamin C] 1,000 mg PO DAILY Zinc (Unknown Dose) 1 tab PO DAILY Discharge Medication List L.acidoph,Paracasei, B.lactis [Probiotic] 1 cap PO DAILY 03/14/16 [History] Magnesium 200 mg PO DAILY 03/14/16 [History] Beta Glucan 1 tab PO DAILY 03/29/18 [History] Cyanocobalamin (Vitamin B-12) [Vitamin B-12] 1,000 mcg PO DAILY 03/29/18 [History] Ascorbic Acid [Vitamin C] 1,000 mg PO DAILY 01/03/24 [History] Acetaminophen Tab [Tylenol] 650 mg PO Q6HR PRN 06/07/24 [History] Cholecalciferol [Vitamin D3 (125 Mcg = 5000 Iu)] 10,000 units PO WE 06/07/24 [History] Zinc (Unknown Dose) 1 tab PO DAILY 06/07/24 [History] Ciprofloxacin HCl [Cipro] 250 mg PO Q12HR 3 Days #6 tab 06/13/24 [Rx] Ketorolac [Toradol] 10 mg PO Q6HR PRN #15 tab 11/07/24 [Rx] Sennosides/Docusate Sodium [Senna Plus 8.6-50 mg Tablet] 1 each PO DAILY 7 Days tab 06/13/24 [Rx] Follow up Appointment(s)/Referral(s): Checo Parker MD [STAFF PHYSICIAN] - 10 Days (home with benedict) Activity/Diet/Wound Care/Special Instructions: It is normal to have blood in the urine You may shower, no baths No heavy lifting or straining Start your antibiotics the Cipro 1 day prior to your follow-up appointment
[2024-06-13] MEDS: ONDANSETRON 4 MG/2 ML VIAL IVP PRN (10:19)
== END 2024-06-13 12:30 ==
LOC: OR 10:23 → 4SSUR 16:29 → OR 06-13 12:30
PROVIDERS: ATTEND Urology
DX: C61 Malignant neoplasm of prostate (principal); M19.90 Unspecified osteoarthritis, unspecified site; M54.50 Low back pain, unspecified; G89.29 Other chronic pain; I83.90 Asymptomatic varicose veins of unspecified lower extremity; Z87.442 Personal history of urinary calculi; Z79.899 Other long term (current) drug therapy; Z90.49 Acquired absence of other specified parts of digestive tract; Z90.89 Acquired absence of other organs; Z98.52 Vasectomy status; Z80.0 Family history of malignant neoplasm of digestive organs; G89.18 Other acute postprocedural pain
CPT/HCPCS: 38571; 55866; S2900; 64999; 88307; 88309

== ENCOUNTER → 2025-01-31 | Outpatient (CLI) | payer MEDICARE | END | disposition home or self-care (01) | LOC: LABWHC1 13:39 | PROVIDERS: ATTEND Urology | DX: C61 Malignant neoplasm of prostate (principal) | CPT/HCPCS: 36415; 84153 ==